=== PATIENT | female | born 1985 | race Caucasian/White ===

== ENCOUNTER 2020-06-06 11:19 | Outpatient (REF) | payer OTHER, SELFPAY ==
[2020-06-06 14:51] LABS: Syphilis Screen Nonreactive (Nonreactive)
[2020-06-07 10:28] LABS: Herpes Simplex Type 1 IgG <0.90 index; Herpes Simplex Type 2 IgG 2.83 index
[2020-06-07 11:11] LABS: BV Int Neg Control Negative (Negative); BV Int Pos Control Positive (Positive)
[2020-06-08 08:48] LABS: HIV AB/AG Nonreactive (Nonreactive); HIV Num 1 0.16 S/CO (0.00-0.99); ~HepC Num1 0.24 S/CO (0.00-0.79); ~Hepatitis C Antibody Nonreactive (Nonreactive)
[2020-06-08 09:34] LABS: Hepatitis B Core Antibody Nonreactive (Nonreactive)
[2020-06-09 06:38] LABS: CT PCR NOT DETECTED (Not Detect.); NG PCR NOT DETECTED (Not Detect.)
== END 2020-06-06 11:20 | disposition home or self-care (01) ==
LOC: HO.LAB 11:19
PROVIDERS: PCP Internal Medicine; Visit Provider Advanced Practice Midwife
DX: Z20.2 Contact with and (suspected) exposure to infections with a predominantly sexual mode of transmission (principal)
CPT/HCPCS: 86695; 86696; 86704; 86780; 86803; 87389; 87480; 87491; 87510; 87591; 87660; 99212

== ENCOUNTER → 2020-06-18 13:38 | Outpatient (BNVA) | payer OTHER, SELFPAY | PROVIDERS: PCP Internal Medicine; Visit Provider Advanced Practice Midwife | DX: Z76.89 Persons encountering health services in other specified circumstances (principal) ==

== ENCOUNTER 2020-07-19 13:04 | Outpatient (REF) | payer OTHER, SELFPAY ==
[2020-07-20 08:12] LABS: HBc Num1 0.08 S/CO (0.00-0.79); HIV AB/AG Nonreactive (Nonreactive); HIV Num 1 0.13 S/CO (0.00-0.99); Hepatitis B Core Antibody Nonreactive (Nonreactive); ~HepC Num1 0.21 S/CO (0.00-0.79); ~Hepatitis C Antibody Nonreactive (Nonreactive)
[2020-07-20 08:35] LABS: Syphilis Screen Nonreactive (Nonreactive)
== END 2020-07-19 13:05 | disposition home or self-care (01) ==
LOC: HO.LAB 13:04
PROVIDERS: PCP Internal Medicine; Visit Provider Advanced Practice Midwife
DX: Z01.419 Encounter for gynecological examination (general) (routine) without abnormal findings (principal); Z20.2 Contact with and (suspected) exposure to infections with a predominantly sexual mode of transmission
CPT/HCPCS: 36415; 86704; 86780; 86803; 87389

== ENCOUNTER 2020-07-19 13:59 | Outpatient (REF) | payer OTHER, SELFPAY ==
[2020-07-20 18:32] LABS: C. trachomatis RNA TMA NOT DETECTED (NOT DETECTED); N. gonorrhoeae RNA TMA NOT DETECTED (NOT DETECTED)
== END 2020-07-19 14:00 | disposition home or self-care (01) ==
LOC: HO.LAB 13:59
PROVIDERS: Visit Provider Advanced Practice Midwife
DX: Z20.2 Contact with and (suspected) exposure to infections with a predominantly sexual mode of transmission (principal)
CPT/HCPCS: 36415; 87491; 87591

== ENCOUNTER 2020-12-19 14:49 | Outpatient (REF) | payer OTHER, SELFPAY ==
[2020-12-21 08:08] LABS: HIV AB/AG Nonreactive (Nonreactive); HIV Num 1 0.12 S/CO (0.00-0.99)
== END 2020-12-19 14:50 | disposition home or self-care (01) ==
LOC: HO.LAB 14:49
PROVIDERS: PCP Internal Medicine; Visit Provider Internal Medicine
DX: Z11.4 Encounter for screening for human immunodeficiency virus [HIV] (principal); Z20.2 Contact with and (suspected) exposure to infections with a predominantly sexual mode of transmission
CPT/HCPCS: 36415; 87389

== ENCOUNTER 2021-02-08 14:00 | Outpatient (RCR) | payer OTHER, SELFPAY ==
--- NOTE | 2020-12-28 17:03 | MHC.PT.EP ---
[facility] [place] Office [place] Office [place] Office [address] Xiang Chaparro [address] [phone] F: [phone] F: [phone] F: [phone] F: [phone] Physical Therapy Plan of Care Date of Evaluation: Date of Surgery: N/A Diagnosis: Unspecified dorsalgia Assessment: Pt is a 35yo F who presents to PT with thoracic back pain. She presents with current impairments in pain, strength, ROM, impaired posture, endurance, balance, hypermobility, and instability. She is able to tolerate sitting or standing upright < 30 sec. She is limited functionally by prolonged sitting, prolonged standing, ambulation, and sleeping. She is a good candidate for skilled PT services to address current impairments, initiate general strengthening, and to improve stability in order to facilitate return to previous activity level. Frequency and Duration: The patient will be seen 2x/week, 4 weeks Short Term Goals: Pt will be I with HEP to promote self management of symptoms Pt will tolerate sitting upright for 2 min Residential Goals: Pt will demonstrate full, pain-free thoracic mobility. Pt will tolerate sitting upright for at least 20 min Pt ambulate at least 20 min with improved stability and gait mechanics Treatment Plan: Modalities to reduce pain, spasms and effusion. Manual therapy to restore motion and function. Therapeutic exercise to improve strength and flexibility. Neuromuscular re-education for posture and balance. Therapeutic activities to return to functional activities of daily living. Electronically signed by: Kaila Mascorro, PT, DPT Please sign and return to therapist. Thank you for your referral.
--- NOTE | 2021-02-11 11:31 | MHC.PT.DC ---
[facility] [place] Office [place] Office [place] Office [address] Xiang Chaparro [address] [phone] F: [phone] F: [phone] F: [phone] F: [phone] Physical Therapy Discharge Report Diagnosis: Unspecified dorsalgia Date of Surgery: N/A Date of Evaluation: 12/28/20 Date of Discharge: 02/11/21 Treatments to Date: 6 Cancellations to Date: 1 No Shows to Date: 1 Discharge Status: Achieved Goals Improved Function Independent with HEP Discharge Summary: Pt has made good progress toward her goals and has improved her function. She is currently independent with her HEP and feels she is at her baseline. She is being D/C from skilled PT services. She has been issued a HEP and given theraband. Electronically signed by: Kaila Mascorro, PT, DPT Please sign and return to therapist. Thank you for your referral.
== END 2021-02-11 11:30 | disposition home or self-care (01) ==
LOC: HO.PT 14:00
PROVIDERS: PCP Internal Medicine; Visit Provider Internal Medicine
DX: M54.9 Dorsalgia, unspecified (principal)
CPT/HCPCS: 97110; 97162; 97530

== ENCOUNTER 2021-03-11 08:58 | Outpatient (REF) | payer OTHER, SELFPAY ==
[2021-03-11 11:02] LABS: Hematocrit 40.7 % (37-47); Hemoglobin 13.5 g/dl (12.0-16.0); Mean Corpuscular HGB Conc 33.2 g/dl (31.0-35.0); Mean Corpuscular Hemoglobin 31.5 pg (27.0-33.0); Mean Corpuscular Volume 94.9 fL (80-98); Mean Platelet Volume 12.4 fL (9.4-12.3); Platelet Count 243 X10*3/uL (160-400); Red Blood Count 4.29 X10*6/uL (4.20-5.50); White Blood Count 6.6 X10*3/uL (4.8-10.8)
[2021-03-11 11:34] LABS: Alanine Aminotransferase 13 U/L (0-31); Albumin Level 4.3 g/dL (3.5-5.0); Alkaline Phosphatase 45 U/L (39-117); Anion Gap 12 (12-20); Aspartate Amino Transferase 16 U/L (5-31); Blood Urea Nitrogen 16 mg/dL (9-16); C Reactive Protein 0.06 mg/dL (< or = 0.50); Calcium 10.3 mg/dL (8.4-10.2); Carbon Dioxide 25 mmol/L (22-29); Chloride 107 mmol/L (96-108); Estimated Glomerular Filt Rate > 60; Glucose Random 79 mg/dL (60-115); Sodium 139 mmol/L (135-145); Total Protein 6.3 g/dL (6.5-8.0)
[2021-03-11 11:41] LABS: Bilirubin Total 0.3 mg/dL (0.0-1.0)
[2021-03-12 21:26] LABS: Transglutaminase Ab IgG 4 U/mL; Transglutaminase IgA 1 U/mL
== END 2021-03-11 08:59 | disposition home or self-care (01) ==
LOC: HO.LAB 08:58
PROVIDERS: PCP Internal Medicine; Referring Provider Internal Medicine; Visit Provider Nurse Practitioner Family
DX: Z12.11 Encounter for screening for malignant neoplasm of colon (principal); R10.11 Right upper quadrant pain; R14.0 Abdominal distension (gaseous); K52.9 Noninfective gastroenteritis and colitis, unspecified; K21.9 Gastro-esophageal reflux disease without esophagitis
CPT/HCPCS: 36415; 80053; 83516; 85027; 86140; 99212

== ENCOUNTER → 2021-04-15 13:33 | Outpatient (BNVA) | payer OTHER, SELFPAY | PROVIDERS: PCP Internal Medicine; Visit Provider Nurse Practitioner Family | DX: K21.9 Gastro-esophageal reflux disease without esophagitis (principal); K52.9 Noninfective gastroenteritis and colitis, unspecified; K58.0 Irritable bowel syndrome with diarrhea | CPT/HCPCS: 99212 ==

== ENCOUNTER 2021-04-17 14:44 | Outpatient (REF) | payer OTHER, SELFPAY ==
[2021-04-18 13:03] LABS: H Pylori Breath Test Negative (Negative)
== END 2021-04-17 14:45 | disposition home or self-care (01) ==
LOC: HO.LNP 14:44
PROVIDERS: Visit Provider Nurse Practitioner Family
DX: K21.9 Gastro-esophageal reflux disease without esophagitis (principal); Z11.3 Encounter for screening for infections with a predominantly sexual mode of transmission
CPT/HCPCS: 83013

== ENCOUNTER 2021-05-13 12:58 | Outpatient (REF) | payer OTHER, SELFPAY ==
--- NOTE | ~2021-05-13 | CT_ITS ---
EXAMINATION: CT ABDOMEN AND PELVIS WITH CONTRAST CLINICAL INFORMATION: Abdominal pain COMPARISON: Previous abdominal ultrasound June 2017 TECHNIQUE: Multidetector volumetric images were obtained from the superior aspect of the liver through the pubic symphysis following administration 85 mL of Omnipaque 350 intravenous contrast. Sagittal and coronal reformatted images were obtained on the technologist's workstation. Oral contrast: Yes This CT examination was performed using dose optimization techniques as appropriate, variously including the following: *Automated exposure control *Adjustment of mA and/or kV according to patient size (this includes techniques or standardized protocols for targeted exams where dose is matched to indication/reason for exam; i.e. extremities or head) *Use of iterative reconstruction technique DLP: 202 mGy-cm FINDINGS: LUNG BASES: The visualized lung bases are unremarkable. LIVER, GALLBLADDER, AND BILIARY TREE: The liver is normal in size, shape, and attenuation. There is a 5 mm low-attenuation lesion in the right lobe of the liver axial image 32 series 3. This is difficult to characterize due to small size but probably represents a. No biliary ductal dilatation is present. The gallbladder is unremarkable with no evidence of radiopaque gallstones, gallbladder wall thickening, or obvious pericholecystic inflammatory changes. PANCREAS: Unremarkable. SPLEEN: There is a small 8 mm low-attenuation lesion in the probably representing a cyst or hemangioma. ADRENAL GLANDS: Unremarkable. KIDNEYS AND URETERS: The kidneys are normal in size, shape, and attenuation. No hydronephrosis, hydroureter, or calculi seen. No perinephric stranding. BLADDER: Unremarkable. GASTROINTESTINAL TRACT: There is wall thickening and edema of the distal colon and rectum there is prominent adjacent vascularity. Findings are suggestive of proctocolitis. No evidence of obstruction, perforation or abscess is seen. The appendix is unremarkable. ABDOMINAL WALL: No significant hernia is appreciated. LYMPH NODES: Normal. VASCULAR: Unremarkable. PELVIC VISCERA: Unremarkable. OSSEOUS STRUCTURES: Unremarkable. CT/CT abdomen pelvis w con IMPRESSION: Wall thickening and edema of the distal colon and rectum suggestive of proctocolitis.
[2021-05-13] MEDS: iohexoL 350 MG/ML 100 ML INFUS..BTL IV (15:32)
== END 2021-05-13 12:59 | disposition home or self-care (01) ==
LOC: HO.CT 12:58
PROVIDERS: Visit Provider Nurse Practitioner Family
DX: R10.9 Unspecified abdominal pain (principal)
CPT/HCPCS: 74177; Q9967

== ENCOUNTER 2021-05-17 11:43 | Day surgery (SDC) | payer OTHER, SELFPAY ==
[2021-05-10 15:28] VITALS: BMI 16.7
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
[2021-05-17 12:57] VITALS: BP 106/69; PULSE 94; RESP 16; TEMP 37.3; O2SAT 95
[2021-05-17 12:59] LABS: UPreg QC Valid YES; Urine Pregnancy NEGATIVE (NEGATIVE)
[2021-05-17] MEDS: Lactated Ringers 1,000 ML 100 ML IVCONT (13:12)
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
--- NOTE | 2021-05-17 13:57 | P.OP_ITS ---
Operative Note Operative Note Date of Service: 05/17/21 Narrative: Pre-op diagnosis: GERD, nausea, vomiting and diarrhea Post-op diagnosis: other (GERD, gastritis) Procedure:? FLEXIBLE TRANSORAL UPPER GASTROINTESTINAL ENDOSCOPY WITH BIOPSIES Consent:?Indications for the procedure and potential complications of bleeding, perforation, reaction to medications and missed diagnosis were discussed with the patient and informed consent was obtained. Instrument:?Olympus GIF H 190 mid size upper endoscope Monitoring: Vital signs and clinical assessment, continuous EKG monitoring, Pulse oximetry, Carbon Dioxide monitoring and blood pressure monitoring were done throughout the procedure. Procedure:?The patient was placed in the left lateral decubitis position and pre-procedure medications were administered and a bite block was placed. The endoscope was inserted into the mouth and advanced under direct vision to the third part of duodenum. A careful inspection was made as the upper endoscope was withdrawn including a retroflexed examination of the proximal stomach; Findings and interventions are described below. Findings: Larynx:? Normal Esophagus: No stricture or ring noted in the esophagus - biopsies were obtained from proximal esophagus to check for EOE. GE junction at 40 cms. No esophagitis or Tapia's. Stomach: Minimal erythema in the antrum. Biopsies were obtained. Grade 2 flap valve on retroflexed examination of the cardia. Duodenum: Normal bulb and descending duodenum.? Biopsies were obtained from 3rd part of the duodenum to check for celiac sprue Intervention: Biopsies as noted above Impression and Post Procedure Diagnosis: Endoscopy Findings: ESOPHAGUS:? No stricture or ring noted in the esophagus - biopsies were obtained from proximal esophagus to check for EOE. STOMACH: Minimal gastritis DUODENUM: Normal - bxed to check for celiac sprue Plan: Await pathology results Patient to schedule a FU appointment in the GI Clinic with ? Rashmi Llanes, MERCHANDISER-. Advise further evaluation with a colonoscopy since Abd CT scan showed?Wall thickening and edema of the distal colon and rectum suggestive of proctocolitis. Above findings were reviewed with the patient and GERD and Gastritis handouts were given in the discharge area Surgeon: Mervin Marx MD Anesthesia: MAC (Dr Reno) Was an Web Content & Social Media Manager used for this Procedure?: Yes Web Content & Social Media Manager: Lisa Little Estimated blood loss (mL): 0 Pathology: other (A. small bowel biopsies, R/O celiac? B. gastric antrum, R/O H. pylori? C. proximal esophagus, R/O EOE) Condition: stable Disposition: PACU
[2021-05-17 15:01] VITALS: BP 108/53; PULSE 113; RESP 15; TEMP 36.9; O2SAT 98
[2021-05-17 15:24] VITALS: BP 100/49; PULSE 77; RESP 16; TEMP 36.8; O2SAT 97
== END 2021-05-17 15:56 | disposition home or self-care (01) ==
PROVIDERS: Nurse Practitioner; PCP Internal Medicine; Visit Provider Internal Medicine Gastroenterology
PROC: 0DJ08ZZ Inspection of Upper Intestinal Tract, Via Natural or Artificial Opening Endoscopic (ICD-10-PCS; CPT 43235; principal; 2021-05-17 12:50)
DX: K21.9 Gastro-esophageal reflux disease without esophagitis (principal); K29.50 Unspecified chronic gastritis without bleeding; K58.0 Irritable bowel syndrome with diarrhea; Q85.1 Tuberous sclerosis; Z88.0 Allergy status to penicillin; Z88.8 Allergy status to other drugs, medicaments and biological substances; Z87.891 Personal history of nicotine dependence
CPT/HCPCS: 43239; 81025; 88305; 88342; J2370

== ENCOUNTER 2021-05-31 15:15 | Outpatient (REF) | payer OTHER, SELFPAY ==
[2021-05-31 15:58] LABS: Leukocytes Stool Qualitative NEGATIVE (NEGATIVE)
[2021-06-05 21:03] LABS: Calprotectin, Fecal 20 mcg/g
== END 2021-05-31 15:16 | disposition home or self-care (01) ==
LOC: HO.LNP 15:15
PROVIDERS: Visit Provider Nurse Practitioner Family
DX: K52.9 Noninfective gastroenteritis and colitis, unspecified (principal)
CPT/HCPCS: 83993; 87045; 87046; 87077; 87177; 87209; 89055

== ENCOUNTER 2021-06-11 15:07 | Emergency (ER) | payer OTHER, SELFPAY ==
--- NOTE | ~2021-06-11 | XR_ITS ---
EXAMINATION: XR WRIST, RIGHT CLINICAL INFORMATION: Trauma, pain COMPARISON: None TECHNIQUE: Right wrist is imaged in 4 views. FINDINGS: There is no fracture or dislocation or destructive process. The ulnar variance is neutral. No joint narrowing or erosive change or chondrocalcinosis. XR/XR wrist RT 2V IMPRESSION: Normal right wrist.
[2021-06-11 15:31] VITALS: BP 122/71; PULSE 86; RESP 18; TEMP 36.6; O2SAT 98; BMI 17.2
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
== END 2021-06-11 19:36 | disposition home or self-care (01) ==
PROVIDERS: Emergency Provider Emergency Medicine; PCP Internal Medicine
DX: S66.911A Strain of unspecified muscle, fascia and tendon at wrist and hand level, right hand, initial encounter (principal); X50.1XXA Overexertion from prolonged static or awkward postures, initial encounter; Y93.84 Activity, sleeping; Y92.032 Bedroom in apartment as the place of occurrence of the external cause; Y99.9 Unspecified external cause status
CPT/HCPCS: 73100; 99283

== ENCOUNTER 2021-11-20 11:52 | Outpatient (REF) | payer OTHER, SELFPAY ==
[2021-11-20 12:58] LABS: Influenza A PCR POSITIVE (Negative); Influenza B PCR NEGATIVE (Negative); Resp Syncy Virus RNA Qual PCR NEGATIVE (Negative); SARS COV2 PCR INHOUSE NEGATIVE (Negative)
== END 2021-11-20 11:53 | disposition home or self-care (01) ==
LOC: HO.LNP 11:52
PROVIDERS: Visit Provider Physician Assistant
DX: Z20.822 Contact with and (suspected) exposure to COVID-19 (principal); B34.9 Viral infection, unspecified
CPT/HCPCS: 0241U; 87071

== ENCOUNTER 2022-01-01 11:33 | Outpatient (REF) | payer OTHER, SELFPAY ==
[2022-01-01 13:18] LABS: Alanine Aminotransferase 28 U/L (0-31); Albumin Level 4.2 g/dL (3.5-5.0); Alkaline Phosphatase 57 U/L (39-117); Amylase 81 U/L (28-100); Aspartate Amino Transferase 24 U/L (5-31); Bilirubin Direct 0.2 mg/dL (0.0-0.5); Bilirubin Total 0.4 mg/dL (0.0-1.0); Lipase 27 U/L (8-78); Total Protein 6.8 g/dL (6.5-8.0)
[2022-01-01 13:38] LABS: TSH reflex Free T4 1.33 uIU/mL (0.32-4.0)
[2022-01-01 15:15] LABS: Folate > 20.0 ng/mL (> or = 4.0); Vitamin B12 587 pg/mL (200-900)
[2022-01-07 12:57] LABS: Vitamin D 25-OH, D2 <4 ng/mL; Vitamin D 25-OH, D3 42 ng/mL; Vitamin D 25-OH, Total 42 ng/mL (30-100)
== END 2022-01-01 11:34 | disposition home or self-care (01) ==
LOC: HO.LAB 11:33
PROVIDERS: PCP Internal Medicine; Visit Provider Nurse Practitioner Family
DX: R10.9 Unspecified abdominal pain (principal); R19.7 Diarrhea, unspecified; R11.0 Nausea; K21.9 Gastro-esophageal reflux disease without esophagitis; K58.9 Irritable bowel syndrome, unspecified; E55.9 Vitamin D deficiency, unspecified
CPT/HCPCS: 36415; 80076; 82150; 82306; 82607; 82746; 83690; 84443; 84702; 86003; 99212

== ENCOUNTER → 2022-01-09 12:52 | Outpatient (BNVA) | payer OTHER, SELFPAY | PROVIDERS: PCP Internal Medicine; Visit Provider Advanced Practice Midwife | DX: Z32.01 Encounter for pregnancy test, result positive (principal); N92.6 Irregular menstruation, unspecified | CPT/HCPCS: 81025; 99202 ==

== ENCOUNTER 2022-01-10 17:45 | Emergency (ER) | payer OTHER, SELFPAY ==
--- NOTE | ~2022-01-10 | US_ITS ---
EXAMINATION: US ABDOMEN LIMITED CLINICAL INFORMATION: Abdominal pain. COMPARISON: Previous CT of the abdomen and pelvis April 2021 and abdominal ultrasound from 2018 TECHNIQUE: Real-time imaging of the right upper quadrant abdominal viscera. FINDINGS: PANCREAS: Normal. LIVER: Normal. The liver is normal in size. The liver contour is normal. Parenchymal echogenicity is normal. No focal hepatic lesion. There is no intrahepatic biliary duct dilatation seen. GALLBLADDER: Normal. The gallbladder is physiologically distended without evidence of stones, sludge, polyps, wall thickening or pericholecystic fluid. COMMON BILE DUCT: Normal in caliber measuring 0.2 cm in diameter. RIGHT KIDNEY: Normal. No hydronephrosis. No renal calculi or focal parenchymal lesions. The kidney measures 12 cm in maximum dimension. FREE FLUID: None. US/US abdomen limited IMPRESSION: Unremarkable exam.
--- NOTE | ~2022-01-10 | XR_ITS ---
EXAMINATION: XR SHOULDER, RIGHT CLINICAL INFORMATION: Right shoulder pain COMPARISON: None TECHNIQUE: Three views of the right shoulder. FINDINGS: No acute fracture or dislocation. Small soft tissue calcification adjacent to the greater tuberosity compatible with calcific tendinopathy of the rotator cuff. Glenohumeral joint space is maintained. AC joint is congruent and intact. No osteophytes are seen. Visualized right lung is grossly clear. Cerclage wires and surgical clips project over the mid thorax. XR/XR shoulder RT min 2V IMPRESSION: 1. No acute fracture or dislocation. 2. Findings compatible with calcific tendinopathy of the rotator cuff.
--- NOTE | ~2022-01-10 | XR_ITS ---
EXAMINATION: XR CHEST CLINICAL INFORMATION: Right-sided pain COMPARISON: Prior chest radiographs, most recently 11/06/2016 TECHNIQUE: 2 views of the chest were obtained. FINDINGS: There are intact sternal wires and note is again made of a pectus excavatum. The cardiomediastinal contours are unchanged. The lungs are well expanded and there are no focal opacities. No pleural effusion or pneumothorax. Structures of the chest wall are stable. XR/XR chest 2V IMPRESSION: No acute abnormality.
[2022-01-10 17:51] VITALS: BP 140/70; PULSE 96; O2SAT 99
--- NOTE | 2022-01-10 17:53 | PC.NURSE ---
EMS report: Pt has 11 out of 10 sciatic nerve pain from their neck down to their feet . Pt is 9 weeks and reports that she will be getting an on Thursday due to the pain, 'because the baby is pushing on my sciatic nerve'. Seen at urgent care on Thursday, given lidocaine patches and muscle relaxers with no relief.
[2022-01-10 18:26] VITALS: BP 120/68; PULSE 93; RESP 20; TEMP 36.7; O2SAT 97; BMI 16.9
--- NOTE | 2022-01-10 18:30 | PC.NURSE ---
Planned at [facility] on Thursday.
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
[2022-01-10] MEDS: oxyCODONE HCl Immed Release 5 MG TABLET PO ×2 (21:41→23:36)
[2022-01-10 22:58] LABS: Basophils Percent Auto 0.5 % (0-2); Eosinophils Absolute Auto 0.1 X10*3/uL (0.0-0.4); Eosinophils Percent Auto 0.7 % (0-4); Hematocrit 38.5 % (37.0-47.0); Hemoglobin 13.1 g/dl (12.0-16.0); Imm Gran Abs Auto 0.02 X10*3/uL (0.00-0.03); Imm Gran Pct Auto 0.2 % (0.0-0.4); Lymphocytes Absolute Auto 4.5 X10*3/uL (1.2-4.9); Lymphocytes Percent Auto 54.9 % (20-40); MANUAL DIFF FLAG SCAN; Mean Corpuscular Hemoglobin 30.8 pg (27.0-33.0); Mean Corpuscular Volume 90.4 fL (80.0-98.0); Mean Platelet Volume 10.2 fL (9.4-12.3); Monocytes Absolute Auto 0.6 X10*3/uL (0.1-1.2); Monocytes Percent Auto 7.1 % (2-11); Neutrophils Percent Auto 36.6 % (45-73); Platelet Count 260 X10*3/uL (160-400); Red Blood Count 4.26 X10*6/uL (4.20-5.50); Red Cell Distribution Width 14.3 % (11.0-16.0); SCAN SMEAR FLAG 1; White Blood Count 8.2 X10*3/uL (4.8-10.8)
[2022-01-10 23:18] LABS: SLIDE REVIEW VERIFIED
[2022-01-10 23:24] LABS: Alanine Aminotransferase 30 U/L (0-31); Albumin Level 3.7 g/dL (3.5-5.0); Alkaline Phosphatase 52 U/L (39-117); Anion Gap 13 (12-20); Aspartate Amino Transferase 29 U/L (5-31); Bilirubin Total 0.5 mg/dL (0.0-1.0); Blood Urea Nitrogen 11 mg/dL (9-16); Calcium 8.4 mg/dL (8.4-10.2); Carbon Dioxide 21 mmol/L (22-29); Chloride 106 mmol/L (96-108); Creatinine Clr Calc Pharmacy 98.6; Estimated Glomerular Filt Rate > 60; Glucose Random 99 mg/dL (60-115); Potassium 3.9 mmol/L (3.3-5.1); Sodium 136 mmol/L (135-145); Total Protein 6.2 g/dL (6.5-8.0)
[2022-01-10] MEDS: Ondansetron ODT 4 MG TAB.RAPDIS TRANSLINGU (23:36)
== END 2022-01-10 23:46 | disposition home or self-care (01) ==
PROVIDERS: Emergency Provider Emergency Medicine; PCP Internal Medicine
DX: O26.891 Other specified pregnancy related conditions, first trimester (principal); M75.41 Impingement syndrome of right shoulder; O09.521 Supervision of elderly multigravida, first trimester; O99.321 Drug use complicating pregnancy, first trimester; F12.90 Cannabis use, unspecified, uncomplicated; Z3A.09 9 weeks gestation of pregnancy; Z87.891 Personal history of nicotine dependence
CPT/HCPCS: 36415; 71046; 73030; 76705; 80053; 85025; 99283; 99284

== ENCOUNTER → 2022-02-03 14:21 | Outpatient (BNVA) | payer OTHER, SELFPAY | PROVIDERS: PCP Internal Medicine; Visit Provider Physician Assistant | DX: M77.8 Other enthesopathies, not elsewhere classified (principal); M24.2 Disorder of ligament | CPT/HCPCS: 99202 ==

== ENCOUNTER 2022-02-27 14:00 | Outpatient (RCR) | payer OTHER, SELFPAY ==
--- NOTE | 2022-02-03 12:29 | MHC.PT.EP ---
[facility] [place] Office [place] Office [place] Office [address] Xiang Chaparro [address] [phone] F: [phone] F: [phone] F: [phone] F: [phone] Physical Therapy Plan of Care Date of Evaluation: Date of Surgery: NA Diagnosis: PAIN IN RIGHT SHOULDER Assessment: Pt IS 36 YO F REFERRED TO PT FROM DR ALFORD WITH R SHLDER PAIN. Pt REPORTS ABOUT 1 MONTH OF R SHLDER PAIN WHICH STARTED AFTER SHE SLEPT FUNNY ON IT . HAD XRAY WHICH WAS + FOR CALCIFIC TENDONITS. PRESENTS WITH POOR POSTURE, DECREASED END RANGE R SHLDER ROM, DECREASED R SHLDER STRENGTH +MODIFIED IMPINGEMENT SIGN. IS SEEING ORTHO THIS AFTERNOON. SHOULD BENEFIT FROM PT TO ADDRESS THESE ISSUES Frequency and Duration: The patient will be seen 2X/WK X 6 WKS Short Term Goals: 1. INCREASED POSTURE AWARENESS AND AWARENESS SHLDER CARE 2. I HEP WITH DC EX PLAN Patient Portal Representative Goals: 1. DECREASED R SHOULDER PAIN AT LEAST 50% WITH ADLS 2. INCREASED R SHLDER ROM 10-20 DEGREES T/O 3. IMPROVED SPADI Treatment Plan: Modalities to reduce pain, spasms and effusion. Manual therapy to restore motion and function. Therapeutic exercise to improve strength and flexibility. Neuromuscular re-education for posture and balance. Therapeutic activities to return to functional activities of daily living. Electronically signed by: SUSAN JIMENEZ PT Please sign and return to therapist. Thank you for your referral.
--- NOTE | 2022-03-26 13:43 | MHC.PT.DC ---
[facility] [place] Office [place] Office [place] Office [address] Xiang Chaparro [address] [phone] F: [phone] F: [phone] F: [phone] F: [phone] Physical Therapy Discharge Report Diagnosis: PAIN IN RIGHT SHOULDER Date of Surgery: NA Date of Evaluation: 02/03/22 Date of Discharge: 03/26/22 Treatments to Date: 6 Cancellations to Date: 2 No Shows to Date: Discharge Status: Independent with HEP Patient Elected to Stop Visit Non-compliance Discharge Summary: Pt WAS SEEN FOR INIT EVAL AND 5 VISITS. PER ASSESSMENT AT LAST VISIT ON 02/27/22 BY LOC JENSEN BET TAKER: 'Pt able to berenice all exercises, req frequent cuing to stay on task throughout. Pt benefitting from increasing strengthening exercises.' Pt THEN CANCELLED NEXT 2 VISITS WITHOUT RESCHEDULE. THIS PT CALLED CELL PHONE # WITH NO ANSWER. WILL DC AT THIS TIME PER ATTENDANCE POLICY Electronically signed by: SUSAN JIMENEZ PT Please sign and return to therapist. Thank you for your referral.
== END 2022-03-26 13:44 | disposition home or self-care (01) ==
LOC: HO.PT 14:00
PROVIDERS: Absent Provider Physician Assistant; PCP Internal Medicine; Visit Provider Internal Medicine
DX: M77.8 Other enthesopathies, not elsewhere classified (principal); M24.2 Disorder of ligament
CPT/HCPCS: 97110; 97162; 97535

== ENCOUNTER 2022-02-27 15:00 | Outpatient (REF) | payer OTHER, SELFPAY ==
[2022-02-27 15:27] LABS: MANUAL DIFF FLAG NO
[2022-02-27 16:13] LABS: Basophils Percent Auto 0.7 % (0-2); Eosinophils Absolute Auto 0.1 X10*3/uL (0.0-0.4); Eosinophils Percent Auto 1.7 % (0-4); Hematocrit 40.9 % (37.0-47.0); Hemoglobin 13.6 g/dl (12.0-16.0); Imm Gran Abs Auto 0.02 X10*3/uL (0.00-0.03); Imm Gran Pct Auto 0.3 % (0.0-0.4); Lymphocytes Absolute Auto 2.6 X10*3/uL (1.2-4.9); Lymphocytes Percent Auto 44.1 % (20-40); Mean Corpuscular HGB Conc 33.3 g/dl (31.0-35.0); Mean Corpuscular Hemoglobin 31.1 pg (27.0-33.0); Mean Corpuscular Volume 93.4 fL (80.0-98.0); Mean Platelet Volume 11.1 fL (9.4-12.3); Monocytes Absolute Auto 0.4 X10*3/uL (0.1-1.2); Monocytes Percent Auto 6.7 % (2-11); Neutrophils Absolute Auto 2.8 x10*3/uL (2.0-8.3); Neutrophils Percent Auto 46.5 % (45-73); Platelet Count 346 X10*3/uL (160-400); Red Blood Count 4.38 X10*6/uL (4.20-5.50)
== END 2022-02-27 15:01 | disposition home or self-care (01) ==
LOC: HO.LAB 15:00
PROVIDERS: PCP Internal Medicine; Visit Provider Internal Medicine
DX: R53.83 Other fatigue (principal)
CPT/HCPCS: 36415; 84443; 85025

== ENCOUNTER 2022-05-28 15:46 | Outpatient (REF) | payer OTHER, SELFPAY ==
--- NOTE | ~2022-05-28 | XR_ITS ---
EXAMINATION: XR CHEST CLINICAL INFORMATION: Shortness of breath COMPARISON: Chest x-ray 01/10/2022 TECHNIQUE: 2 views of the chest were obtained. FINDINGS: No airspace consolidation. No pleural effusion or pneumothorax. Normal cardiomediastinal silhouette and pulmonary vascularity. Couple upper sternal wires are noted. No acute osseous injury. XR/XR chest 2V IMPRESSION: No acute pulmonary process.
== END 2022-05-28 15:47 | disposition home or self-care (01) ==
LOC: HO.HMGCX 15:46
PROVIDERS: PCP Internal Medicine; Visit Provider Internal Medicine
DX: R06.02 Shortness of breath (principal)
CPT/HCPCS: 0241U; 71046

== ENCOUNTER 2022-05-28 16:11 | Outpatient (REF) | payer OTHER, SELFPAY ==
[2022-05-28 18:33] LABS: Influenza A PCR NEGATIVE (Negative); Influenza B PCR NEGATIVE (Negative); Resp Syncy Virus RNA Qual PCR NEGATIVE (Negative); SARS COV2 PCR INHOUSE NEGATIVE (Negative)
== END 2022-05-28 16:12 | disposition home or self-care (01) ==
LOC: HO.LNP 16:11
PROVIDERS: Visit Provider Nurse Practitioner Family
DX: Z13.89 Encounter for screening for other disorder (principal)
CPT/HCPCS: 0241U

== ENCOUNTER → 2022-07-09 10:30 | Outpatient (BNVA) | payer OTHER, SELFPAY | PROVIDERS: PCP Internal Medicine; Visit Provider Advanced Practice Midwife | DX: Z30.41 Encounter for surveillance of contraceptive pills (principal) | CPT/HCPCS: 99212 ==

== ENCOUNTER 2022-08-15 00:50 | Emergency (ER) | payer OTHER, SELFPAY ==
--- NOTE | ~2022-08-15 | XR_ITS ---
EXAMINATION: XR CHEST CLINICAL INFORMATION: Dyspnea. URI. COMPARISON: 05/28/2022 TECHNIQUE: 2 views of the chest were obtained. FINDINGS: Cerclage wires overlie the central thorax. Hyperexpanded lungs. No consolidation, edema, or effusion. No pneumothorax. The cardiomediastinal silhouette is within normal limits. No acute osseous abnormality. XR/XR chest 2V IMPRESSION: Hyperexpanded lungs with no acute pulmonary finding.
[2022-08-15 01:04] VITALS: BP 134/82; PULSE 98; RESP 18; TEMP 37.3; O2SAT 95; BMI 16.4
[2022-08-15 01:24] VITALS: BP 133/91; PULSE 87; RESP 19; TEMP 37.1; O2SAT 97
[2022-08-15 01:29] VITALS: O2SAT 96
--- NOTE | 2022-08-15 01:34 | PC.NURSE ---
Pt's V/ S are stable, pt lungs sound throughout bilaterally clear. Pt is connected to the vice chair and it shows NSR. Pt o2 sat is normal.
[2022-08-15 01:56] LABS: Influenza A PCR NEGATIVE (Negative); Influenza B PCR NEGATIVE (Negative); Resp Syncy Virus RNA Qual PCR POSITIVE (Negative); SARS COV2 PCR INHOUSE NEGATIVE (Negative)
[2022-08-15 02:00] VITALS: BP 110/49; PULSE 95; RESP 23; TEMP 36.6; O2SAT 97
[2022-08-15] MEDS: guaiFEN/Codeine SF 200/20/10ML 10 ML LIQUID PO (02:13)
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
[2022-08-15 02:26] VITALS: PULSE 95; RESP 23; O2SAT 95
[2022-08-15] MEDS: dexAMETHasone 2 MG TABLET 10 MG PO (02:44)
--- NOTE | 2022-08-15 02:52 | PC.NURSE ---
Pt's V/ S are stable, pt hs hx of asthma. Lungs sound lower lobes with exp wheezes and yellow septum. Pt is connected to the cardiac surgeon and it shows NSR. Pt o2 sat is normal.
[2022-08-15 03:22] VITALS: BP 134/86; PULSE 91; RESP 19; TEMP 36.7; O2SAT 96
--- NOTE | 2022-08-15 03:23 | PC.NURSE ---
pt is having a dry cough, Medicated per Mar, no respiratory distress at this time, provider aware, Will continue to monitor.
== END 2022-08-15 04:38 | disposition home or self-care (01) ==
PROVIDERS: Emergency Provider Internal Medicine; PCP Internal Medicine
DX: J21.0 Acute bronchiolitis due to respiratory syncytial virus (principal); Z20.822 Contact with and (suspected) exposure to COVID-19; Z20.828 Contact with and (suspected) exposure to other viral communicable diseases; Z87.891 Personal history of nicotine dependence
CPT/HCPCS: 0241U; 71046; 94640; 99284; 99285; J8540

== ENCOUNTER 2022-09-03 14:48 | Outpatient (REF) | payer OTHER, SELFPAY ==
[2022-09-03 19:40] LABS: CT PCR NOT DETECTED (Not Detect.); NG PCR NOT DETECTED (Not Detect.)
== END 2022-09-03 14:49 | disposition home or self-care (01) ==
LOC: HO.LNP 14:48
PROVIDERS: PCP Internal Medicine; Visit Provider Advanced Practice Midwife
DX: Z20.2 Contact with and (suspected) exposure to infections with a predominantly sexual mode of transmission (principal)
CPT/HCPCS: 0353U

== ENCOUNTER 2022-09-15 14:28 | Outpatient (REF) | payer OTHER, SELFPAY ==
--- NOTE | ~2022-09-15 | MM_ITS ---
EXAMINATION: MM DIAGNOSTIC DIGITAL BREAST TOMOSYNTHESIS, BILATERAL US DIAGNOSTIC ULTRASOUND BREAST, RIGHT CLINICAL INFORMATION: 37-year-old with tender lump posterior upper outer right breast noted by patient. Unremarkable clinical exam. Family history breast cancer unknown. No prior breast imaging. COMPARISON: None (current study represents initial baseline exam). TECHNIQUE: Digital breast tomosynthesis is performed in both the craniocaudal and mediolateral oblique views along with computer-aided detection (CAD). Synthesized 2D images are generated from the tomosynthesis. Ultrasound right breast is targeted to the area of clinical concern. Patient is able to directly point to the area at time of imaging. Grayscale imaging and color Doppler are performed without and with harmonics. FINDINGS: The breasts are extremely dense, which lowers the sensitivity of mammography (ACR BI-RADS breast composition Category d). The symptom marker resides above the area of very dense breast tissue composition MLO view. There is no skin thickening or retraction or architectural abnormality. The axilla are unremarkable. The bilateral breasts show no mass or architectural abnormality. No abnormal calcifications. Ultrasound targeted to the area of clinical concern shows no cystic or solid mass or architectural abnormality. No focal duct ectasia. No skin thickening or edema tracking in soft tissue planes. Chest wall soft tissues are unremarkable. Results are discussed with the patient at time of visit. MM/MM tomosynthesis diagnostic BI IMPRESSION: -No mammographic evidence of malignancy or inflammatory changes. -Unremarkable targeted right breast ultrasound. ASSESSMENT: BI-RADS 1: Negative RECOMMENDATION: 1. Patient should be managed based on the clinical impression. If clinically indicated, further evaluation may be considered with surgical consult. Decision to proceed with biopsy should be based on clinical grounds and degree of clinical concern. 2. Otherwise, routine annual screening mammography, beginning age 40, or earlier as clinical risk factors warrant. This patient's information was entered into a reminder system with a target due date for their next mammogram.
== END 2022-09-15 14:29 | disposition home or self-care (01) ==
LOC: HO.MAMMO 14:28
PROVIDERS: PCP Internal Medicine; Visit Provider Advanced Practice Midwife
DX: N64.4 Mastodynia (principal)
CPT/HCPCS: 76642; 77062; 77066

== ENCOUNTER → 2022-09-23 13:24 | Outpatient (BNVA) | payer OTHER, SELFPAY | PROVIDERS: PCP Internal Medicine; Visit Provider Advanced Practice Midwife ==

== ENCOUNTER → 2022-10-21 14:01 | Outpatient (BNVA) | payer OTHER, SELFPAY | PROVIDERS: PCP Internal Medicine; Visit Provider Advanced Practice Midwife | DX: Z30.09 Encounter for other general counseling and advice on contraception (principal); Z32.02 Encounter for pregnancy test, result negative | CPT/HCPCS: 81025; 99212 ==

== ENCOUNTER → 2022-11-26 14:46 | Outpatient (BNVA) | payer OTHER, SELFPAY | PROVIDERS: PCP Internal Medicine; Visit Provider Nurse Practitioner Family | DX: J45.909 Unspecified asthma, uncomplicated (principal); Z91.09 Other allergy status, other than to drugs and biological substances | CPT/HCPCS: 99202 ==

== ENCOUNTER 2022-11-28 13:55 | Outpatient (REF) | payer OTHER, SELFPAY ==
[2022-11-28 14:10] LABS: MANUAL DIFF FLAG NO
[2022-11-28 14:25] LABS: Basophils Absolute Auto 0.1 X10*3/uL (0.0-0.2); Basophils Percent Auto 0.8 % (0-2); Eosinophils Absolute Auto 0.6 X10*3/uL (0.0-0.4); Eosinophils Percent Auto 10.3 % (0-4); Hematocrit 40.4 % (37.0-47.0); Hemoglobin 13.2 g/dl (12.0-16.0); Imm Gran Abs Auto 0.01 X10*3/uL (0.00-0.03); Imm Gran Pct Auto 0.2 % (0.0-0.4); Lymphocytes Absolute Auto 2.9 X10*3/uL (1.2-4.9); Lymphocytes Percent Auto 47.3 % (20-40); Mean Corpuscular HGB Conc 32.7 g/dl (31.0-35.0); Mean Corpuscular Hemoglobin 31.1 pg (27.0-33.0); Mean Corpuscular Volume 95.1 fL (80.0-98.0); Mean Platelet Volume 11.3 fL (9.4-12.3); Monocytes Absolute Auto 0.3 X10*3/uL (0.1-1.2); Monocytes Percent Auto 5.3 % (2-11); Neutrophils Absolute Auto 2.2 x10*3/uL (2.0-8.3); Neutrophils Percent Auto 36.1 % (45-73); Platelet Count 262 X10*3/uL (160-400); Red Blood Count 4.25 X10*6/uL (4.20-5.50); Red Cell Distribution Width 12.8 % (11.0-16.0); White Blood Count 6.1 X10*3/uL (4.8-10.8)
[2022-11-28 15:38] LABS: Alanine Aminotransferase 12 U/L (0-31); Alkaline Phosphatase 43 U/L (39-117); Anion Gap 10 (12-20); Aspartate Amino Transferase 14 U/L (5-31); Bilirubin Total 0.5 mg/dL (0.0-1.0); Blood Urea Nitrogen 10 mg/dL (9-16); Carbon Dioxide 25 mmol/L (22-29); Chloride 106 mmol/L (96-108); Cholesterol 156 mg/dL; Estimated Glomerular Filt Rate > 60; Glucose Fasting 87 mg/dL (60-99); HDL Cholesterol 53 mg/dL; Iron 42 mcg/dL (30-160); LDL Cholesterol Calculated 81 mg/dl; Percent Iron Saturation 12 % (15-50); Potassium 4.6 mmol/L (3.3-5.1); Sodium 136 mmol/L (135-145); Total Iron Binding Capacity 348 mcg/dL (228-428); Total Protein 6.4 g/dL (6.5-8.0); Triglycerides 111 mg/dL; Unsaturated Iron Binding 306 ug/dL
[2022-11-28 15:41] LABS: Vitamin D 25-OH Total 49.7 ng/mL (>30)
== END 2022-11-28 13:56 | disposition home or self-care (01) ==
LOC: HO.LAB 13:55
PROVIDERS: Nurse Practitioner Family; PCP Internal Medicine; Visit Provider Internal Medicine
DX: Z00.00 Encounter for general adult medical examination without abnormal findings (principal); E55.9 Vitamin D deficiency, unspecified; D64.9 Anemia, unspecified; Z91.09 Other allergy status, other than to drugs and biological substances
CPT/HCPCS: 36415; 80053; 80061; 82306; 82785; 83540; 85025; 86003

== ENCOUNTER 2022-12-03 13:59 | Outpatient (REF) | payer OTHER, SELFPAY ==
[2022-12-04 03:31] LABS: CT PCR NOT DETECTED (Not Detect.); NG PCR NOT DETECTED (Not Detect.)
== END 2022-12-03 14:00 | disposition home or self-care (01) ==
LOC: HO.LNP 13:59
PROVIDERS: PCP Internal Medicine; Visit Provider Obstetrics & Gynecology
DX: Z30.09 Encounter for other general counseling and advice on contraception (principal); N93.9 Abnormal uterine and vaginal bleeding, unspecified; Z20.2 Contact with and (suspected) exposure to infections with a predominantly sexual mode of transmission
CPT/HCPCS: 0353U; 81025; 99212

== ENCOUNTER 2022-12-10 16:06 | Outpatient (REF) | payer OTHER, SELFPAY ==
[2022-12-10 18:07] LABS: Hemoglobin 13.7 g/dl (12.0-16.0); Mean Corpuscular HGB Conc 32.6 g/dl (31.0-35.0); Mean Corpuscular Hemoglobin 30.8 pg (27.0-33.0); Mean Corpuscular Volume 94.4 fL (80.0-98.0); Mean Platelet Volume 11.8 fL (9.4-12.3); Platelet Count 309 X10*3/uL (160-400); Red Blood Count 4.45 X10*6/uL (4.20-5.50); Red Cell Distribution Width 12.9 % (11.0-16.0); White Blood Count 6.7 X10*3/uL (4.8-10.8)
[2022-12-10 18:16] LABS: HCG Quantitative < 2 mIU/mL
[2022-12-10 18:28] LABS: TSH reflex Free T4 0.98 uIU/mL (0.32-4.0)
[2022-12-13 09:09] LABS: Prolactin 6.8 ng/mL
== END 2022-12-10 16:07 | disposition home or self-care (01) ==
LOC: HO.LAB 16:06
PROVIDERS: PCP Internal Medicine; Visit Provider Obstetrics & Gynecology
DX: N93.9 Abnormal uterine and vaginal bleeding, unspecified (principal)
CPT/HCPCS: 36415; 84146; 84443; 84702; 85027

== ENCOUNTER 2022-12-11 16:33 | Outpatient (REF) | payer OTHER, SELFPAY ==
--- NOTE | ~2022-12-11 | US_ITS ---
EXAMINATION: US PELVIS COMPLETE CLINICAL INFORMATION: Abnormal uterine bleeding COMPARISON: CT abdomen pelvis 05/13/2021 TECHNIQUE: Transabdominal and transvaginal imaging was performed. FINDINGS: The uterus is of normal size and echogenicity measuring 8.3 x 3.2 x 4.8 cm. A regular homogeneous endometrium is identified measuring 0.9 cm. Trace fluid in the endocervical canal. section scar in the anterior lower uterine segment. Both ovaries are of normal echogenicity. The right measures 2.7 x 1.3 x 1.5 cm for a volume of 2.8 mL. The left measures 6.3 x 2.7 x 2.3 cm and appears mildly enlarged with a 2.8 cm dominant follicle, no follow-up imaging recommended. Vascular flow is present within the ovaries, without evidence of torsion. There is no pelvic free fluid. US/US pelvic and transvaginal IMPRESSION: Trace fluid in the endocervical canal. section scar in the anterior lower uterine segment. Physiologic findings in the ovaries as detailed above.
== END 2022-12-11 16:34 | disposition home or self-care (01) ==
LOC: HO.US 16:33
PROVIDERS: PCP Internal Medicine; Visit Provider Obstetrics & Gynecology
DX: N93.9 Abnormal uterine and vaginal bleeding, unspecified (principal)
CPT/HCPCS: 76830; 76856

== ENCOUNTER 2022-12-15 14:56 | Outpatient (REF) | payer OTHER, SELFPAY ==
--- NOTE | 2022-12-15 | PFT_ITS ---
INDICATION: Dyspnea. SPIROMETRY: The FEV1 to FVC of 67% with an FEV1 of 2.33 L, which is 69% predicted, FVC of 3.48 L, which is 84% predicted. Post bronchodilators, there was a significant improvement of the FEV1 by 20%. To note, the [id number] decreased down to 27% predicted pre bronchodilators. Maximum voluntary ventilation 60% predicted. LUNG VOLUMES: Total lung capacity 87% predicted. DIFFUSION CAPACITY: DLCO 64% predicted. COMPARISONS: None. INTERPRETATION: There is an obstructive ventilatory defect consistent with moderate COPD. There is a significant response to bronchodilators noted. There is also a moderate decrease in maximum voluntary ventilation secondary to likely deconditioning. Lung volumes are within normal limits, and the patient does have a mild diffusion impairment, likely secondary to emphysema and all the parenchymal condition should be considered. Should also correct for hemoglobin. Clinical correlation warranted. Tito Don MD MR/MODL / [id number]
== END 2022-12-15 14:57 | disposition home or self-care (01) ==
LOC: HO.RESP 14:56
PROVIDERS: PCP Internal Medicine; Visit Provider Nurse Practitioner Family
DX: J45.909 Unspecified asthma, uncomplicated (principal); R06.00 Dyspnea, unspecified
CPT/HCPCS: 94010; 94727; 94729

== ENCOUNTER → 2022-12-24 15:08 | Outpatient (BNVA) | payer OTHER, SELFPAY | PROVIDERS: PCP Internal Medicine; Visit Provider Nurse Practitioner Family | DX: J44.9 Chronic obstructive pulmonary disease, unspecified (principal); Z91.09 Other allergy status, other than to drugs and biological substances | CPT/HCPCS: 99212 ==

== ENCOUNTER 2023-01-12 14:05 | Outpatient (REF) | payer OTHER, SELFPAY ==
--- NOTE | ~2023-01-12 | CT_ITS ---
EXAMINATION: CT CHEST WITHOUT CONTRAST CLINICAL INFORMATION: COPD COMPARISON: None available. TECHNIQUE: Multidetector volumetric CT imaging of the chest was done. Axial MIP volume rendering provided. Sagittal and coronal reformatted images were obtained. This CT examination was performed using dose optimization techniques as appropriate, variously including the following: *Automated exposure control *Adjustment of mA and/or kV according to patient size (this includes techniques or standardized protocols for targeted exams where dose is matched to indication/reason for exam; i.e. extremities or head) *Use of iterative reconstruction technique DLP: 93 mGy-cm FINDINGS: LUNGS: The lungs are well-inflated. No evidence of emphysema interstitial lung disease or bronchiectasis. No endobronchial or endotracheal lesion. MEDIASTINUM: The visualized thyroid gland is normal. No enlarged hilar or mediastinal lymph nodes. Normal heart size. No pericardial effusion. Normal caliber thoracic aorta. CORONARY ARTERY CALCIFICATION: None visualized on this study. PLEURA: There is no pleural effusion. No pleural mass or thickening. AXILLA: No lymphadenopathy. UPPER ABDOMEN: Unremarkable. OSSEOUS STRUCTURES: Pectus deformity. Cerclage wires in the sternum. Surgical clips overlying anterior manubrium. CT/CT chest wo IV con IMPRESSION: Well-inflated lungs. Pectus deformity and postsurgical changes to the sternum. Fleischner guidelines were followed.
== END 2023-01-12 14:06 | disposition home or self-care (01) ==
LOC: HO.CT 14:05
PROVIDERS: Visit Provider Nurse Practitioner Family
DX: J44.9 Chronic obstructive pulmonary disease, unspecified (principal)
CPT/HCPCS: 71250

== ENCOUNTER 2023-01-12 14:33 | Emergency (ER) | payer OTHER, SELFPAY | END 2023-01-12 15:36 | disposition left against medical advice (07) | PROVIDERS: Emergency Provider Emergency Medicine; PCP Internal Medicine | DX: S99.921A Unspecified injury of right foot, initial encounter (principal); X58.XXXA Exposure to other specified factors, initial encounter; Y93.9 Activity, unspecified; Y92.9 Unspecified place or not applicable; Y99.9 Unspecified external cause status ==

== ENCOUNTER → 2023-02-05 13:15 | Outpatient (REF) | payer OTHER, SELFPAY ==
--- NOTE | 2023-02-05 13:19 | ECG_ITS ---
Test Reason : CHEST PAIN Blood Pressure : / mmHG Vent. Rate : 079 BPM Atrial Rate : 079 BPM P-R Int : 156 ms QRS Dur : 090 ms QT Int : 366 ms P-R-T Axes : 072 090 068 degrees QTc Int : 419 ms Normal sinus rhythm Biatrial enlargement Rightward axis RSR' or QR pattern in V1 suggests right ventricular conduction delay Anterior infarct , age undetermined Abnormal ECG No previous ECGs available Referred By: Zulma Love Electronically Signed By:Lance Higgins
== END ==
LOC: HO.CARD 13:15
PROVIDERS: PCP Internal Medicine; Visit Provider Internal Medicine
DX: R07.9 Chest pain, unspecified (principal)
CPT/HCPCS: 93005

== ENCOUNTER → 2023-02-05 13:19 | Outpatient (BNV) | payer OTHER, SELFPAY | PROVIDERS: PCP Internal Medicine; Visit Provider Internal Medicine Cardiovascular Disease | DX: R94.31 Abnormal electrocardiogram [ECG] [EKG] (principal); R07.9 Chest pain, unspecified | CPT/HCPCS: 93010 ==

== ENCOUNTER 2023-02-10 12:58 | Outpatient (AMB) | payer OTHER, SELFPAY ==
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
[2023-02-10 13:21] VITALS: BP 102/66; BMI 16.6
== END 2023-02-10 13:40 | disposition home or self-care (01) ==
LOC: HO.HWS 12:58
PROVIDERS: PCP Internal Medicine; Visit Provider Obstetrics & Gynecology
DX: N93.9 Abnormal uterine and vaginal bleeding, unspecified (principal); Z32.02 Encounter for pregnancy test, result negative
CPT/HCPCS: 58100

== ENCOUNTER 2023-02-10 12:58 | Outpatient (REF) | payer OTHER, SELFPAY | END 2023-02-10 12:59 | disposition home or self-care (01) | LOC: HO.LNP 12:58 | PROVIDERS: PCP Internal Medicine; Visit Provider Obstetrics & Gynecology | DX: N93.9 Abnormal uterine and vaginal bleeding, unspecified (principal) | CPT/HCPCS: 58100; 81025; 88305 ==

== ENCOUNTER → 2023-03-17 09:50 | Outpatient (REF) | payer OTHER, SELFPAY ==
--- NOTE | ~2023-03-17 | NM_ITS ---
Lexiscan Myocardial perfusion study Indication: Chest pain, shortness of breath, assess for ischemia Technique: The patient was brought in for a Lexiscan perfusion study on 03/17/2023 and was injected 0.4 mg of Lexiscan intravenously. Within a minute of this injection 25 mCi of sestamibi was given intravenously. Images were obtained using the SPECT gamma camera interlaced with the gating device. Images were obtained in supine position. Resting perfusion study was performed on 03/18/2023. Patient was administered 25 mCi of sestamibi intravenously at rest. Images were then obtained in supine position. Images were processed with the software and compared side to side in short axis, horizontal long axis and vertical long axis views. Total DLP 77mGy-cm. Findings: Raw acquisition reviewed. The stress perfusion study showed no significant perfusion abnormality. Both uncorrected as well as CT attenuation corrected images were reviewed. The gated study shows normal LV systolic function with calculated LVEF of 57%. LV cavity is normal in size. The gated study shows normal wall thickening and contraction of segments. Resting study shows no significant perfusion abnormality. Gating at rest reveals normal wall motion with ejection fraction at 64%. The findings are consistent with no clear reversible or fixed perfusion abnormality. NM/NM cardiolite stress test Impression: 1. Myocardial perfusion imaging study shows normal myocardial perfusion. 2. Gated LVEF is 57% during stress and 64% during rest. 3. Transient ischemic dilatation not present. EKG component of the test reported separately.
--- NOTE | 2023-03-17 09:53 | CA_ITS ---
Acquisition Time: 2023-03-17 10:04:45 Total Exercise Time: 00:02:00 Test Indications: CP, SOB Medications: Protocol: LEXISCAN Max HR: 150 BPM 81% of Pred: 183 BPM Max BP: 118/064 mmHG Max Work Load: 1.0 METS Pharmacological stress test with Lexiscan injection while sitting and kicking her legs, without anginal symptoms, with isolated PACs and PVCs, with normotensive response to injection, with nondiagnositic EKGs. Aminophyine 75mg IVP given to reverse Lexiscan. Nuclear images pending. Referred By: Zulma Love Overread By: Miguelina Rausch
== END ==
LOC: HO.CARD 09:50
PROVIDERS: PCP Internal Medicine; Visit Provider Internal Medicine
DX: R07.9 Chest pain, unspecified (principal)
CPT/HCPCS: 78452; 93017; A9500; J0280; J2785

== ENCOUNTER → 2023-03-17 09:53 | Outpatient (BNV) | payer OTHER, SELFPAY | PROVIDERS: PCP Internal Medicine; Visit Provider Nurse Practitioner | DX: R07.9 Chest pain, unspecified (principal) | CPT/HCPCS: 78452; 93016; 93018 ==

== ENCOUNTER 2023-06-16 12:01 | Outpatient (AMB) | payer OTHER, SELFPAY ==
[2023-06-16 14:03] VITALS: BP 116/68; PULSE 88; TEMP 36.8; O2SAT 99; BMI 18.6
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
== END 2023-06-16 14:50 | disposition home or self-care (01) ==
PROVIDERS: PCP Internal Medicine; Visit Provider Internal Medicine
DX: J44.9 Chronic obstructive pulmonary disease, unspecified (principal)
CPT/HCPCS: 99213

== ENCOUNTER 2023-06-16 16:28 | Outpatient (REF) | payer OTHER, SELFPAY ==
[2023-06-16 17:34] LABS: Influenza A PCR NEGATIVE (Negative); Influenza B PCR NEGATIVE (Negative); Resp Syncy Virus RNA Qual PCR NEGATIVE (Negative); SARS COV2 PCR INHOUSE NEGATIVE (Negative)
== END 2023-06-16 16:29 | disposition home or self-care (01) ==
LOC: HO.HMGCLNP 16:28
PROVIDERS: Visit Provider Internal Medicine
DX: R43.9 Unspecified disturbances of smell and taste (principal); Z11.52 Encounter for screening for COVID-19
CPT/HCPCS: 0241U

== ENCOUNTER 2023-06-18 11:31 | Emergency (ER) | payer OTHER, SELFPAY ==
--- NOTE | ~2023-06-18 | XR_ITS ---
EXAMINATION: XR CHEST CLINICAL INFORMATION: Shortness of breath. COMPARISON: August 15, 2022. TECHNIQUE: Frontal view of the chest was obtained. FINDINGS: The patient is minimally rotated. The cardiomediastinal silhouette is within normal limits and stable. There is no focal lung consolidation or pleural effusion. The bony structures and soft tissues are unremarkable. XR/XR chest 1V IMPRESSION: No active cardiopulmonary disease.
--- NOTE | ~2023-06-18 | CT_ITS ---
EXAMINATION: CT ANGIOGRAM OF THE CHEST WITH AND WITHOUT CONTRAST (CT PULMONARY ANGIOGRAM FOR PE) CLINICAL INFORMATION: Reason for Exam dimer + tachycarding, sob COMPARISON: None available. TECHNIQUE: Prior to contrast administration, noncontrast localization images were obtained. Subsequently, multidetector volumetric imaging was performed from the thoracic inlet to below the diaphragms following the administration of 80 mL Omnipaque 350 intravenous contrast. No contrast reaction reported Sagittal, coronal, and MIP oblique sagittal reformatted images were obtained on the CT workstation, uploaded to PACS, and reviewed. This CT examination was performed using dose optimization techniques as appropriate, variously including the following: *Automated exposure control *Adjustment of mA and/or kV according to patient size (this includes techniques or standardized protocols for targeted exams where dose is matched to indication/reason for exam; i.e. extremities or head) *Use of iterative reconstruction technique Total exam dose-length product 158 mGy-cm FINDINGS: QUALITY OF STUDY/CONTRAST BOLUS: Satisfactory. PULMONARY ARTERIES: No pulmonary emboli. THORACIC AORTA: No aneurysm. LUNG: No focal consolidation, nodules or masses. PLEURA: No pleural effusion or pneumothorax. MEDIASTINUM: Normal heart size. No pericardial effusion. No hilar or mediastinal lymphadenopathy. No evidence of septal bowing or right heart strain. CORONARY ARTERY CALCIFICATION: None visualized on this study. CHEST WALL/AXILLA: No axillary or internal mammary lymphadenopathy. OSSEOUS STRUCTURES: No acute or suspicious osseous abnormality. UPPER ABDOMEN: Visualized liver, spleen and pancreas unremarkable. No reflux of contrast into the hepatic veins to suggest elevated right heart pressures. CT/CT angio chest PE protocol IMPRESSION: 1. No evidence of PE. 2. No evidence of aortic aneurysm. VTE: negative.
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
[2023-06-18 11:43] VITALS: BP 144/62; PULSE 125; RESP 22; TEMP 36.8; O2SAT 98; BMI 18.8
--- NOTE | 2023-06-18 11:45 | ECG_ITS ---
Test Reason : sob Blood Pressure : / mmHG Vent. Rate : 125 BPM Atrial Rate : 125 BPM P-R Int : 140 ms QRS Dur : 082 ms QT Int : 302 ms P-R-T Axes : 077 118 054 degrees QTc Int : 435 ms Sinus tachycardia with Premature supraventricular complexes Biatrial enlargement Left posterior fascicular block Anterior infarct (cited on or before 05-FEB-2023) Abnormal ECG When compared with ECG of 05-FEB-2023 13:23, Premature supraventricular complexes are now Present Vent. rate has increased BY 46 BPM Referred By: Rochelle Godoy Electronically Signed By:CARLITOS LYNCH MD
[2023-06-18 12:08] VITALS: PULSE 124
[2023-06-18] MEDS: levalbuterol HCL 3.75 MG, Ipratropium Bromide 0.5 MG INHALE (12:11)
[2023-06-18 12:34] LABS: MANUAL DIFF FLAG NO
[2023-06-18 12:49] LABS: Basophils Percent Auto 0.2 % (0-2); Hematocrit 40.1 % (37.0-47.0); Hemoglobin 13.4 g/dl (12.0-16.0); Imm Gran Abs Auto 0.01 X10*3/uL (0.00-0.03); Imm Gran Pct Auto 0.2 % (0.0-0.4); Lymphocytes Absolute Auto 1.2 X10*3/uL (1.2-4.9); Mean Corpuscular HGB Conc 33.4 g/dl (31.0-35.0); Mean Corpuscular Volume 89.9 fL (80.0-98.0); Mean Platelet Volume 10.9 fL (9.4-12.3); Monocytes Absolute Auto 0.1 X10*3/uL (0.1-1.2); Monocytes Percent Auto 1.4 % (2-11); Neutrophils Absolute Auto 3.8 x10*3/uL (2.0-8.3); Neutrophils Percent Auto 74.2 % (45-73); Platelet Count 297 X10*3/uL (160-400); Red Blood Count 4.46 X10*6/uL (4.20-5.50); Red Cell Distribution Width 12.9 % (11.0-16.0); White Blood Count 5.1 X10*3/uL (4.8-10.8)
[2023-06-18 12:50] LABS: Prothrombin Time 11.9 SEC (11.1-13.3)
[2023-06-18 12:59] LABS: Alanine Aminotransferase 14 U/L (0-31); Albumin Level 4.6 g/dL (3.5-5.0); Alkaline Phosphatase 48 U/L (39-117); Anion Gap 14 (12-20); Aspartate Amino Transferase 16 U/L (5-31); Bilirubin Direct 0.2 mg/dL (0.0-0.5); Bilirubin Total 0.4 mg/dL (0.0-1.0); Blood Urea Nitrogen 13 mg/dL (9-16); Calcium 9.5 mg/dL (8.4-10.2); Carbon Dioxide 16 mmol/L (22-29); Chloride 111 mmol/L (96-108); Creatinine Clr Calc Pharmacy 83.7; Estimated Glomerular Filt Rate > 60; Glucose Random 158 mg/dL (60-115); Potassium 4.2 mmol/L (3.3-5.1); Sodium 137 mmol/L (135-145)
[2023-06-18 13:03] LABS: B Type Natriuretic Peptide < 10 pg/mL (<100)
[2023-06-18 13:20] LABS: Troponin-I High Sensitivity < 2.7 ng/L (<3.5-17.0)
[2023-06-18 13:22] LABS: Lactic Acid 4.2 mmol/L (0.5-2.0)
[2023-06-18 13:22] LABS: COVID-19 Test Negative (Negative); IDNOW Serial# 08D9AD1C; IDNOW Serial# BCCEAD1C; Influenza A Negative (Negative); Influenza B2 Positive (Negative)
[2023-06-18] MEDS: LORazepam 1 MG TABLET PO (13:28)
[2023-06-18 13:36] LABS: D Dimer High Sensitivity 360 NG/ML
[2023-06-18 13:39] VITALS: BP 176/74; PULSE 118; RESP 22; O2SAT 97
[2023-06-18 14:50] LABS: Reflex Lactate? Lactic Acid Added
[2023-06-18 15:19] VITALS: BP 146/71; PULSE 128; RESP 16; TEMP 36.5; O2SAT 96
--- NOTE | 2023-06-18 15:24 | MHC.EDTECH ---
This pct assumed care of patient at 1500 ,vitals taken ,HARJINDER aMrtinez is aware of Patient high hr ,Pt was hooked up to lunchroom monitor by this pct ,Lactic acid drawn and sent to lab .
[2023-06-18] MEDS: iohexoL 350 MG/ML 100 ML INFUS..BTL IV (15:55)
[2023-06-18 16:15] LABS: ~Lactic Acid-LAB USE ONLY 3.5 mmol/L (0.5-2.0)
[2023-06-18 17:35] LABS: Reflex Lactate? 2 Y
[2023-06-18 17:39] VITALS: BP 128/65; PULSE 110; RESP 16; O2SAT 98
--- NOTE | 2023-06-18 17:40 | MHC.EDTECH ---
Provider Kristian said no need to draw 3 rd repeated lactic acid .
== END 2023-06-18 17:46 | disposition home or self-care (01) ==
PROVIDERS: Physician Assistant; Emergency Provider Emergency Medicine; PCP Internal Medicine
DX: J10.1 Influenza due to other identified influenza virus with other respiratory manifestations (principal); R06.02 Shortness of breath; J45.909 Unspecified asthma, uncomplicated; Z11.52 Encounter for screening for COVID-19; Z20.822 Contact with and (suspected) exposure to COVID-19; Z79.899 Other long term (current) drug therapy
CPT/HCPCS: 36415; 71045; 71275; 80048; 80076; 83605; 83880; 84484; 85025; 85379; 85610; 87040; 87502; 87635; 93005; 94640; 99285; Q9967

== ENCOUNTER → 2023-06-18 11:45 | Outpatient (BNV) | payer OTHER, SELFPAY | PROVIDERS: Emergency Provider Emergency Medicine; PCP Internal Medicine; Visit Provider Internal Medicine Cardiovascular Disease | DX: R00.0 Tachycardia, unspecified (principal); I49.49 Other premature depolarization; I51.7 Cardiomegaly | CPT/HCPCS: 93010 ==

== ENCOUNTER 2023-07-02 14:56 | Outpatient (AMB) | payer OTHER, SELFPAY ==
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
== END 2023-07-02 15:33 | disposition home or self-care (01) ==
PROVIDERS: PCP Internal Medicine; Visit Provider Nurse Practitioner Family
DX: N30.10 Interstitial cystitis (chronic) without hematuria (principal); R39.9 Unspecified symptoms and signs involving the genitourinary system; R39.15 Urgency of urination; R35.1 Nocturia
CPT/HCPCS: 99204

== ENCOUNTER → 2023-07-02 14:56 | Outpatient (BNVA) | payer OTHER, SELFPAY | PROVIDERS: PCP Internal Medicine; Visit Provider Nurse Practitioner Family | DX: N30.10 Interstitial cystitis (chronic) without hematuria (principal); R39.9 Unspecified symptoms and signs involving the genitourinary system; R39.15 Urgency of urination; R35.1 Nocturia | CPT/HCPCS: 51798; 81003; 99202 ==

== ENCOUNTER 2023-07-08 14:01 | Outpatient (AMB) | payer OTHER, SELFPAY ==
[2023-07-08 14:21] VITALS: BP 132/68; PULSE 122; O2SAT 97; BMI 18.6
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
== END 2023-07-08 14:49 | disposition home or self-care (01) ==
PROVIDERS: PCP Internal Medicine; Visit Provider Nurse Practitioner Family
DX: J44.9 Chronic obstructive pulmonary disease, unspecified (principal); Z91.09 Other allergy status, other than to drugs and biological substances; R06.00 Dyspnea, unspecified
CPT/HCPCS: 99214

== ENCOUNTER → 2023-07-08 14:01 | Outpatient (BNVA) | payer OTHER, SELFPAY | PROVIDERS: PCP Internal Medicine; Visit Provider Nurse Practitioner Family | DX: J44.9 Chronic obstructive pulmonary disease, unspecified (principal); R06.00 Dyspnea, unspecified; Z91.09 Other allergy status, other than to drugs and biological substances | CPT/HCPCS: 99212 ==

== ENCOUNTER 2023-08-04 15:03 | Outpatient (AMB) | payer OTHER, SELFPAY ==
[2023-08-04 15:04] VITALS: BP 128/64; PULSE 103; O2SAT 95; BMI 18.6
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
== END 2023-08-04 15:55 | disposition home or self-care (01) ==
PROVIDERS: PCP Internal Medicine; Visit Provider Nurse Practitioner Family
DX: R07.9 Chest pain, unspecified (principal); Q67.6 Pectus excavatum; J44.9 Chronic obstructive pulmonary disease, unspecified
CPT/HCPCS: 99214

== ENCOUNTER → 2023-08-04 15:03 | Outpatient (BNVA) | payer OTHER, SELFPAY | PROVIDERS: PCP Internal Medicine; Visit Provider Nurse Practitioner Family | DX: Q67.6 Pectus excavatum (principal); R07.9 Chest pain, unspecified; J44.9 Chronic obstructive pulmonary disease, unspecified | CPT/HCPCS: 99212 ==

== ENCOUNTER 2023-08-10 14:15 | Outpatient (REF) | payer OTHER, SELFPAY ==
--- NOTE | ~2023-08-10 | XR_ITS ---
EXAMINATION: XR CHEST CLINICAL INFORMATION: Chest pain, unspecified COMPARISON: Chest 06/18/2023 TECHNIQUE: 2 views of the chest were obtained. FINDINGS: The lungs are hyperinflated with flattening of the hemidiaphragms. No focal consolidation, interstitial pulmonary edema or pneumothorax. The cardiomediastinal sweat is within normal limits. There are no pleural effusions. There is mild curve of the thoracic spine, convex right. 2 sternal wires are seen and are intact. XR/XR chest 2V IMPRESSION: No acute cardiopulmonary disease.
== END 2023-08-10 14:16 | disposition home or self-care (01) ==
LOC: HO.XRAY 14:15
PROVIDERS: PCP Internal Medicine; Visit Provider Nurse Practitioner Family
DX: R07.9 Chest pain, unspecified (principal)
CPT/HCPCS: 71046

== ENCOUNTER 2023-08-19 14:59 | Outpatient (AMB) | payer OTHER, SELFPAY ==
[2023-08-19 15:02] VITALS: BP 118/64; PULSE 116; O2SAT 98; BMI 18.8
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
== END 2023-08-19 15:19 | disposition home or self-care (01) ==
PROVIDERS: PCP Internal Medicine; Visit Provider Nurse Practitioner Family
DX: J44.9 Chronic obstructive pulmonary disease, unspecified (principal); Q67.6 Pectus excavatum; Z01.811 Encounter for preprocedural respiratory examination
CPT/HCPCS: 99214

== ENCOUNTER → 2023-08-19 14:59 | Outpatient (BNVA) | payer OTHER, SELFPAY | PROVIDERS: PCP Internal Medicine; Visit Provider Nurse Practitioner Family | DX: Z01.811 Encounter for preprocedural respiratory examination (principal); J44.9 Chronic obstructive pulmonary disease, unspecified; Q67.6 Pectus excavatum | CPT/HCPCS: 99212 ==

== ENCOUNTER 2023-08-25 13:23 | Outpatient (AMB) | payer OTHER, SELFPAY ==
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
== END 2023-08-25 14:03 | disposition home or self-care (01) ==
LOC: HO.HUSH 13:23
PROVIDERS: PCP Internal Medicine; Visit Provider Nurse Practitioner Family
DX: R35.1 Nocturia (principal); R39.15 Urgency of urination; R39.9 Unspecified symptoms and signs involving the genitourinary system; N30.10 Interstitial cystitis (chronic) without hematuria
CPT/HCPCS: 99214

== ENCOUNTER → 2023-08-25 13:23 | Outpatient (BNVA) | payer OTHER, SELFPAY | PROVIDERS: PCP Internal Medicine; Visit Provider Nurse Practitioner Family ==

== ENCOUNTER 2023-08-31 12:17 | Day surgery (SDC) | payer OTHER, SELFPAY ==
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
[2023-08-31 13:48] VITALS: BMI 19.3
[2023-08-31 13:53] VITALS: BP 126/55; PULSE 89; RESP 16; TEMP 36.5; O2SAT 96
[2023-08-31] MEDS: Lactated Ringers 1,000 ML 100 ML IVCONT (14:10)
[2023-08-31] MEDS: levoFLOXacin 500 MG TABLET PO (14:11)
[2023-08-31 14:20] LABS: UPreg QC Valid YES; Urine Pregnancy NEGATIVE (NEGATIVE)
--- NOTE | 2023-08-31 14:42 | MHC.SHP ---
Pre-Procedural Eval Section A - 24 Hr Update-Section A only Date of Service: 08/31/23 The patient is an INPATIENT: No Changes since office visit: No Cold of Flu in the past 2 weeks, No New Medical Problems, No Changes in Medication and No Patient answered all questions The patient has been examined within 24 hours of the surgical procedure. The History & Physical has been completed within 30 days and I have reviewed it.: Yes Section B - Complete if H&P > 30 days Chief Complaint: Interstitial cystitis (chronic) without hematuria Allergies: Allergies Allergy/AdvReac Type Severity Reaction Status Date / Time amoxicillin [AMOXICILLIN] Allergy Severe ANAPHYLAXIS, Verified 08/25/23 13:54 swelling bupropion [From WELLBUTRIN] Allergy Severe SEIZURES Verified 08/25/23 13:54 duloxetine [From CYMBALTA] Allergy Intermediate diarrhea Verified 08/25/23 13:54 adhesive tape AdvReac Intermediate Rash Verified 08/25/23 13:54 apple AdvReac Intermediate projectile Verified 08/25/23 13:54 vomiting banana AdvReac Intermediate projectile Verified 08/25/23 13:54 vomiting Plan Diagnosis/Plan: Unchanged (hydrodistention) I have reviewed the history and physical and performed a pertinent physical examination on my patient. No changes have occurred unless specified. Time Spent With Patient Time: Total time managing care of this patient today ____ minutes.
[2023-08-31 15:19] VITALS: BP 101/65; PULSE 68; RESP 16; TEMP 36.6; O2SAT 100
[2023-08-31 15:24] VITALS: BP 102/60; PULSE 71; RESP 16; O2SAT 100
[2023-08-31 15:29] VITALS: BP 108/64; PULSE 73; RESP 16; O2SAT 100
[2023-08-31 15:34] VITALS: BP 118/75; PULSE 106; RESP 18; TEMP 36.6; O2SAT 99
--- NOTE | 2023-08-31 15:40 | P.OP_ITS ---
Operative Note Operative Note Date of Service: 08/31/23 Narrative: PreOperative Diagnosis: Interstitial cystitis with pelvic pain Post Operative Diagnosis: Interstitial cystitis with pelvic pain Procedure: Hydrodistention Surgeon: Dr Francesco Kunz Anesthesia: General Indications for procedure: persistent nocturia Last hydrodistention 2019 Positive benefit from tadalafil Procedure: After informed consent was verified the patient was brought to the operating room and placed in a supine position. Anesthesia was administered per protocol. The patient was placed in a modified dorsal lithotomy position and prepped and draped in sterile fashion. Safety pause time-out was observed. Antibiotics being given. A 22 Frisian cystoscope was used to empty the bladder. A mixture of bupivacaine lidocaine gel 20 cc was instilled into the bladder and allowed to sit for 2-3 minutes. Hydrodistention of the bladder was performed. The bladder was filled and allowed to sit for 2 minutes. Filling was from a height of 1 m. On the 1st fill there was 550 cc within the bladder. Cystoscopy revealed glomerulations consistent with interstitial cystitis. Second filling of the bladder was performed in similar fashion. Volume was approximately 550 cc. Terminal hematuria noted. The the bladder was emptied. The patient tolerated procedure well was extubated in operating room transferred in stable condition to the recovery area. Appropriate postprocedure pain medication was provided. Pathology: Drains: None
[2023-08-31] MEDS: ondansetron HCL 4 MG/2 ML VIAL IVPUSH (15:45)
[2023-08-31 15:49] VITALS: BP 116/65; PULSE 92; RESP 16; TEMP 36.8; O2SAT 97
[2023-08-31] MEDS: oxyCODONE HCl Immed Release 5 MG TABLET PO (15:53)
== END 2023-08-31 16:21 | disposition home or self-care (01) ==
PROVIDERS: Nurse Practitioner; PCP Internal Medicine; Visit Provider Urology
PROC: 0T7B7ZZ Dilation of Bladder, Via Natural or Artificial Opening (ICD-10-PCS; CPT 52260; principal; 2023-08-31 14:20)
DX: N30.10 Interstitial cystitis (chronic) without hematuria (principal); R10.2 Pelvic and perineal pain; R31.9 Hematuria, unspecified; R35.1 Nocturia; R39.15 Urgency of urination; Z88.1 Allergy status to other antibiotic agents; Z88.8 Allergy status to other drugs, medicaments and biological substances; L23.1 Allergic contact dermatitis due to adhesives; Z79.51 Long term (current) use of inhaled steroids; Z79.899 Other long term (current) drug therapy; Z87.891 Personal history of nicotine dependence
CPT/HCPCS: 52260; 81025; J0131; J1100; J2250; J2405; J2704; J3010

== ENCOUNTER → 2023-08-31 12:17 | Outpatient (BNV) | payer OTHER, SELFPAY | PROVIDERS: PCP Internal Medicine; Visit Provider Urology | DX: N30.10 Interstitial cystitis (chronic) without hematuria (principal) | CPT/HCPCS: 52260 ==

== ENCOUNTER → 2023-09-10 13:28 | Outpatient (BNVA) | payer OTHER, SELFPAY | PROVIDERS: PCP Internal Medicine; Visit Provider Nurse Practitioner Family | DX: N30.10 Interstitial cystitis (chronic) without hematuria (principal); R35.1 Nocturia; R39.15 Urgency of urination; R39.9 Unspecified symptoms and signs involving the genitourinary system | CPT/HCPCS: 51798 ==

== ENCOUNTER 2023-09-14 09:53 | Outpatient (AMB) | payer OTHER, SELFPAY ==
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
[2023-09-14 10:03] VITALS: BP 96/58; PULSE 96; RESP 16; O2SAT 96; BMI 18.5
== END 2023-09-14 10:45 | disposition home or self-care (01) ==
PROVIDERS: PCP Internal Medicine; Visit Provider Physician Assistant
DX: F41.1 Generalized anxiety disorder (principal); Q67.6 Pectus excavatum
CPT/HCPCS: 99214

== ENCOUNTER 2023-10-09 11:59 | Outpatient (AMB) | payer OTHER, SELFPAY ==
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
== END 2023-10-09 12:27 | disposition home or self-care (01) ==
PROVIDERS: PCP Internal Medicine; Visit Provider Nurse Practitioner Family
DX: R35.1 Nocturia (principal); R39.15 Urgency of urination; R39.9 Unspecified symptoms and signs involving the genitourinary system; N30.10 Interstitial cystitis (chronic) without hematuria; Z13.9 Encounter for screening, unspecified
CPT/HCPCS: 99213

== ENCOUNTER → 2023-10-09 11:59 | Outpatient (BNVA) | payer OTHER, SELFPAY | PROVIDERS: PCP Internal Medicine; Visit Provider Nurse Practitioner Family | DX: R35.1 Nocturia (principal); R39.15 Urgency of urination; R39.9 Unspecified symptoms and signs involving the genitourinary system; N30.10 Interstitial cystitis (chronic) without hematuria | CPT/HCPCS: 81003; 99212 ==

== ENCOUNTER 2023-11-17 15:54 | Outpatient (AMB) | payer OTHER, SELFPAY ==
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
[2023-11-17 16:01] VITALS: BP 102/70; BMI 17.4
== END 2023-11-17 17:26 | disposition home or self-care (01) ==
PROVIDERS: PCP Internal Medicine; Visit Provider Internal Medicine
DX: Z00.00 Encounter for general adult medical examination without abnormal findings (principal); J44.9 Chronic obstructive pulmonary disease, unspecified
CPT/HCPCS: 99395

== ENCOUNTER 2023-11-27 10:35 | Outpatient (REF) | payer OTHER, SELFPAY ==
[2023-11-27 10:47] LABS: MANUAL DIFF FLAG NO
[2023-11-27 11:06] LABS: Basophils Absolute Auto 0.1 X10*3/uL (0.0-0.2); Basophils Percent Auto 0.8 % (0-2); Eosinophils Absolute Auto 0.7 X10*3/uL (0.0-0.4); Eosinophils Percent Auto 11.8 % (0-4); Hematocrit 41.3 % (37.0-47.0); Hemoglobin 13.8 g/dl (12.0-16.0); Imm Gran Abs Auto 0.01 X10*3/uL (0.00-0.03); Imm Gran Pct Auto 0.2 % (0.0-0.4); Lymphocytes Absolute Auto 3.2 X10*3/uL (1.2-4.9); Lymphocytes Percent Auto 52.3 % (20-40); Mean Corpuscular HGB Conc 33.4 g/dl (31.0-35.0); Mean Corpuscular Hemoglobin 30.3 pg (27.0-33.0); Mean Corpuscular Volume 90.8 fL (80.0-98.0); Mean Platelet Volume 10.1 fL (9.4-12.3); Monocytes Absolute Auto 0.4 X10*3/uL (0.1-1.2); Neutrophils Absolute Auto 1.8 x10*3/uL (2.0-8.3); Neutrophils Percent Auto 28.9 % (45-73); Platelet Count 285 X10*3/uL (160-400); Red Blood Count 4.55 X10*6/uL (4.20-5.50); Red Cell Distribution Width 12.9 % (11.0-16.0); White Blood Count 6.2 X10*3/uL (4.8-10.8)
[2023-11-27 12:17] LABS: Alanine Aminotransferase 13 U/L (0-31); Albumin Level 4.3 g/dL (3.5-5.0); Alkaline Phosphatase 53 U/L (39-117); Anion Gap 12 (12-20); Aspartate Amino Transferase 14 U/L (5-31); Bilirubin Total 0.4 mg/dL (0.0-1.0); Blood Urea Nitrogen 11 mg/dL (9-16); Calcium 9.6 mg/dL (8.4-10.2); Carbon Dioxide 23 mmol/L (22-29); Chloride 110 mmol/L (96-108); Cholesterol 145 mg/dL (<200); Estimated Glomerular Filt Rate > 60; Glucose Fasting 93 mg/dL (60-99); HDL Cholesterol 52 mg/dL (>40); LDL Cholesterol Calculated 81 mg/dL (<100); Potassium 4.1 mmol/L (3.3-5.1); Sodium 141 mmol/L (135-145); Total Protein 6.6 g/dL (6.5-8.0); Triglycerides 60 mg/dL (<150)
== END 2023-11-27 10:36 | disposition home or self-care (01) ==
LOC: HO.LAB 10:35
PROVIDERS: PCP Internal Medicine; Visit Provider Internal Medicine
DX: Z00.00 Encounter for general adult medical examination without abnormal findings (principal); E55.9 Vitamin D deficiency, unspecified; Z91.09 Other allergy status, other than to drugs and biological substances; D64.9 Anemia, unspecified
CPT/HCPCS: 36415; 80053; 80061; 82306; 85025

== ENCOUNTER 2024-03-08 13:30 | Outpatient (AMB) | payer OTHER, SELFPAY ==
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
[2024-03-08 14:03] VITALS: BP 100/52; PULSE 115; O2SAT 98; BMI 18.6
== END 2024-03-08 14:27 | disposition home or self-care (01) ==
PROVIDERS: PCP Internal Medicine; Visit Provider Nurse Practitioner Family
DX: J44.9 Chronic obstructive pulmonary disease, unspecified (principal); Q67.6 Pectus excavatum
CPT/HCPCS: 99214

== ENCOUNTER → 2024-03-08 13:30 | Outpatient (BNVA) | payer OTHER, SELFPAY | PROVIDERS: PCP Internal Medicine; Visit Provider Nurse Practitioner Family | DX: J44.9 Chronic obstructive pulmonary disease, unspecified (principal); Q67.6 Pectus excavatum; F12.90 Cannabis use, unspecified, uncomplicated; Z87.891 Personal history of nicotine dependence | CPT/HCPCS: 99212 ==

== ENCOUNTER → 2024-04-06 15:39 | Outpatient (AMB) | payer OTHER, SELFPAY ==
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
== END ==
PROVIDERS: PCP Internal Medicine; Visit Provider Nurse Practitioner Family
DX: N30.10 Interstitial cystitis (chronic) without hematuria (principal); R35.1 Nocturia; Z13.9 Encounter for screening, unspecified
CPT/HCPCS: 99214

== ENCOUNTER → 2024-04-06 15:39 | Outpatient (BNVA) | payer OTHER, SELFPAY | PROVIDERS: PCP Internal Medicine; Visit Provider Nurse Practitioner Family | DX: N30.10 Interstitial cystitis (chronic) without hematuria (principal); R35.1 Nocturia | CPT/HCPCS: 51798; 81003; 99212 ==

== ENCOUNTER 2024-04-08 16:09 | Outpatient (REF) | payer OTHER, SELFPAY ==
[2024-04-08 16:35] LABS: MANUAL DIFF FLAG NO
[2024-04-08 17:11] LABS: Basophils Absolute Auto 0.1 X10*3/uL (0.0-0.2); Basophils Percent Auto 0.8 % (0-2); Eosinophils Absolute Auto 0.3 X10*3/uL (0.0-0.4); Eosinophils Percent Auto 5.4 % (0-4); Hematocrit 43.7 % (37.0-47.0); Hemoglobin 14.7 g/dl (12.0-16.0); Imm Gran Abs Auto 0.01 X10*3/uL (0.00-0.03); Imm Gran Pct Auto 0.2 % (0.0-0.4); Lymphocytes Absolute Auto 2.7 X10*3/uL (1.2-4.9); Lymphocytes Percent Auto 43.6 % (20-40); Mean Corpuscular HGB Conc 33.6 g/dl (31.0-35.0); Mean Corpuscular Hemoglobin 29.5 pg (27.0-33.0); Mean Corpuscular Volume 87.6 fL (80.0-98.0); Mean Platelet Volume 10.8 fL (9.4-12.3); Monocytes Absolute Auto 0.6 X10*3/uL (0.1-1.2); Monocytes Percent Auto 9.6 % (2-11); Neutrophils Absolute Auto 2.5 x10*3/uL (2.0-8.3); Neutrophils Percent Auto 40.4 % (45-73); Platelet Count 331 X10*3/uL (160-400); Red Blood Count 4.99 X10*6/uL (4.20-5.50); Red Cell Distribution Width 14.5 % (11.0-16.0); White Blood Count 6.2 X10*3/uL (4.8-10.8)
[2024-04-11 22:48] LABS: Immunoglobulin E 84 kU/L (<OR=114)
== END 2024-04-08 16:10 | disposition home or self-care (01) ==
LOC: HO.LAB 16:09
PROVIDERS: PCP Internal Medicine; Visit Provider Physician Assistant
DX: R11.10 Vomiting, unspecified (principal); Z91.018 Allergy to other foods
CPT/HCPCS: 36415; 82785; 85025; 86003

== ENCOUNTER 2024-04-20 15:16 | Outpatient (REF) | payer OTHER, SELFPAY ==
[2024-04-20 15:26] LABS: MANUAL DIFF FLAG NO
[2024-04-20 15:54] LABS: Basophils Absolute Auto 0.1 X10*3/uL (0.0-0.2); Basophils Percent Auto 0.9 % (0-2); Eosinophils Absolute Auto 0.4 X10*3/uL (0.0-0.4); Hematocrit 41.2 % (37.0-47.0); Hemoglobin 13.8 g/dl (12.0-16.0); Imm Gran Abs Auto 0.02 X10*3/uL (0.00-0.03); Imm Gran Pct Auto 0.3 % (0.0-0.4); Lymphocytes Absolute Auto 2.7 X10*3/uL (1.2-4.9); Lymphocytes Percent Auto 38.4 % (20-40); Mean Corpuscular HGB Conc 33.5 g/dl (31.0-35.0); Mean Corpuscular Hemoglobin 29.8 pg (27.0-33.0); Mean Platelet Volume 10.2 fL (9.4-12.3); Monocytes Absolute Auto 0.5 X10*3/uL (0.1-1.2); Monocytes Percent Auto 7.6 % (2-11); Neutrophils Absolute Auto 3.3 x10*3/uL (2.0-8.3); Neutrophils Percent Auto 46.8 % (45-73); Platelet Count 314 X10*3/uL (160-400); Red Blood Count 4.63 X10*6/uL (4.20-5.50); Red Cell Distribution Width 14.6 % (11.0-16.0)
== END 2024-04-20 15:17 | disposition home or self-care (01) ==
LOC: HO.LAB 15:16
PROVIDERS: PCP Internal Medicine; Visit Provider Physician Assistant
DX: J45.40 Moderate persistent asthma, uncomplicated (principal)
CPT/HCPCS: 36415; 85025

== ENCOUNTER 2024-06-08 14:03 | Outpatient (AMB) | payer OTHER, SELFPAY ==
[2024-06-08 14:17] VITALS: BP 104/60; PULSE 225; O2SAT 96; BMI 19.0
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
--- OUTSIDE RECORDS SUMMARY | 2024-06-09 02:41 | XMS_ITS | Continuity of Care Document ---
Author Organization [facility] vices Address [address] [place] [address] Phone Care Team Providers Care Hose Inspector Name Role Phone Unavailable Unavailable Unavailable Advance Directives Directive Yes / No Effective Date File Name No Information Encounters Encounter Description Practice Location Reason(s) For Visit Diagnoses Date Provider Providers Copied on Encounter [facility], [address] [place] [address], [facility], tel:[phone] Conversion No Information 2 No Information [facility], [address] [place] [address], [facility], tel:[phone] Conversion IRRITABLE BOWEL SYNDROMECHRONIC MAJOR DEPRESSIONCYSTI TIS CHRONIC INTERSTITIAL Apr-0 2 No Information Family History Family Member Type Diagnosis Age At Onset No Information Payers Payer name Insurance type Covered libertarian ID Authoriza tion(s) No Information Social History Type Description Quantity Date Captured Comments Sex Female Smoking Status No Information Chief Complaint And Reason For Visit No Information Reason For Referral Reason For Referral No Information History Of Present Illness Encounter Date Complaint History Of Prese nt Illness No Information Functional Status Date Functional Assessmen t No Information Instructions Date Instruction Additional Infor mation No Information Assessments Type Assessment Date No Information Patient Care Teams Name Effective Dates (start - stop) Status Members No Information
--- OUTSIDE RECORDS SUMMARY | 2024-06-09 02:41 | XMS_ITS | Continuity of Care Document ---
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 Name Role Phone Rios Love MD, Zulma Lujan Primary Care Physician [phone] Encounter [facility] [place] Date(s): 05/09/24 - 05/10/[address] [id number] Discharge Disposition: A-D/C Home Attending Physician: Colleen Barclay MD Admitting Physician: Colleen Barclay MD Referring Physician: Colleen Barclay MD Encounter Type: Disch IP Allergies, Adverse Reactions, Alerts Substance Criticality Severity Reaction Reaction Severity Status amoxicillin High criticality Severe rash and swelling Active Wellbutrin little seizures A ctive Apples and difficult breathing vomiting Active Cymbalta High criticality Severe Diarrhea Vomiting Active Bananas and difficulty breathing vomitting Active Medications albuterol inhaler (OP) 0 Refills, Maintenance Start Date: 08/26/23 Status: Ordered Repeat number: 1 cyclobenzaprine 10 mg oral tablet 10 mg, 1, tablet, By Mouth, Daily at bedtime, Refills 0, Maintenance, 08/26/23 1:27:00 PM EST, Partial fill upon patient request if the prescription is for a schedule II opioid drug. Start Date: 08/26/23 Status: Ordered Repeat number: 1 gabapentin 300 mg oral capsule 300 mg, 1, capsule, By Mouth, 3 times a day, # 63 capsule, Refills 0, Tot. Refills 0, Maintenance, 05/10/24 11:39:00 AM EST, Route to Pharmacy Electronically, [facility], Partial fill upon patient request if the prescription is for a schedule II opioid drug., 170, cm, 05/09/24 17:58:00 EST, Height, 55.7, kg, 05/09/24 17:58:00 EST, Dry Weight Start Date: 05/10/24 Stop Date: 05/31/24 Status: Ordered Quantity: 63.0 Unit: capsule Repeat number: 1 Indication: Pectus excavatum Gabapentin Capsule 300 mg, Capsule, By Mouth, 05/10/24 3:00:00 PM EST Start Date: 05/10/24 Stop Date: 05/10/24 Status: Completed Repeat number: 1 ibuprofen 200 mg oral tablet 600 mg, 3, tablet, By Mouth, 3 times a day, PRN, for 7 days, # 63 tablet, Refills 0, Tot. Refills 0, Acute 05/17/24 11:40:00 AM EST, Pain , Moderate, 05/10/24 11:40:00 AM EST, Route to Pharmacy Electronically, [facility], Partial fill upon patient request if the prescription is for a schedule II opioid drug., 170, cm, 05/09/24 17:58:00 EST, Height, 55.7, kg, 05/09/24 17:58:00 EST, Dry Weight Start Date: 05/10/24 Stop Date: 05/17/24 Status: Ordered Quantity: 63.0 Unit: tablet Repeat number: 1 metoprolol 25 mg oral tablet 12.5 mg, Tablet, By Mouth, 05/10/24 9:00:00 AM EST Start Date: 05/10/24 Stop Date: 05/10/24 Status: Completed Repeat number: 1 metoprolol 25 mg oral tablet 25 mg, 1, tablet, By Mouth, 2 times a day, # 60 tablet, Refills 0, Tot. Refills 0, Maintenance, 05/10/24 3:42:00 PM EST, Route to Pharmacy Electronically, [facility], Partial fill upon patient request if the prescription is for a schedule II opioid drug., 170, cm, 05/09/24 17:58:00 EST, Height, 55.7, kg, 05/09/24 17:58:00 EST, Dry Weight Start Date: 05/10/24 Status: Ordered Quantity: 60.0 Unit: tablet Repeat number: 1 metoprolol 25 mg oral tablet 12.5 mg, Tablet, By Mouth, 05/09/24 9:00:00 PM EST Start Date: 05/09/24 Stop Date: 05/09/24 Status: Completed Repeat number: 1 MiraLax oral powder for reconstitution = 17 Gm, By Mouth, Daily, for 7 days, # 119 Gm, 0 Refills, Acute 05/17/24 11:42:00 AM EST, 05/10/2411:42:00 AM EST, REC Powder, [facility], Partial fill upon patient request if the prescription is for a schedule II opioid drug., 17 Gm By Mouth Daily,x7 days, 170, cm, 05/09/24 17:58:00 EST, Height, 55.7, kg, 05/09/24 17:58:00 EST, Dry Weight Start Date: 05/10/24 Stop Date: 05/17/24 Status: Ordered Quantity: 119.0 Unit: g Repeat number: 1 oxyCODONE 5 mg oral tablet 5 mg, 1, tablet, By Mouth, Every 4 hours, PRN, for 7 days, # 42 tablet, Refills 0, Tot. Refills 0, Acute 05/17/24 11:40:00 AM EST, Pain , Moderate, 05/10/24 11:40:00 AM EST, Route to Pharmacy Electronically, [facility], Partial fill upon patient request if the prescription is for a schedule II opioid drug., 170, cm, 05/09/24 17:58:00 EST, Height, 55.7, kg, 05/09/24 17:58:00 EST, DryWeight Start Date: 05/10/24 Stop Date: 05/17/24 Status: Ordered Quantity: 42.0 Unit: tablet Repeat number: 1 Indication: Pectus excavatum Symbicort 160mcg/4.5mcg Inhaler 2, puffs, Inhalation, 2 times a day, Refills 0, Maintenance, 08/26/23 1:27:00 PM EST Start Date: 08/26/23 Status: Ordered Repeat number: 1 tadalafil = 5 mg, By Mouth, Daily, 0 Refills, Maintenance, 05/09/24 5:47:00 AM EST, Partial fill upon patientrequest if the prescription is for a schedule II opioid drug. Start Date: 05/09/24 Status: Ordered Repeat number: 1 Tylenol 325 mg oral tablet 325 mg, 1, tablet, By Mouth, Every 8 hours, # 21 tablet, Refills 0, Tot. Refills 0, Soft Stop, 05/10/24 3:44:00 PM EST, Route to Pharmacy Electronically, [facility], Partial fill upon patient request if the prescription is for a schedule II opioid drug., 170, cm, 05/09/24 17:58:00 EST, Height, 55.7, kg, 05/09/24 17:58:00 EST, Dry Weight Start Date: 05/10/24 Stop Date: 05/17/24 Status: Ordered Quantity: 21.0 Unit: tablet Repeat number: 1 Valium 2 mg oral tablet 2 mg, 1, tablet, By Mouth, 3 times a day, PRN, for 5 days, # 15 tablet, Refills 0, Tot. Refills 0, Acute 05/15/24 11:40:00 AM EST, Spasm, 05/10/24 11:40:00 AM EST, Route to Pharmacy Electronically, [facility], Partial fill upon patient request if the prescription is for a schedule II opioid drug., 170, cm, 05/09/24 17:58:00 EST, Height, 55.7, kg, 05/09/24 17:58:00 EST, Dry Weight Start Date: 05/10/24 Stop Date: 05/15/24 Status: Ordered Quantity: 15.0 Unit: tablet Repeat number: 1 Problem List Condition Confirmation Course Effective Dates Status Health St atus Informant Pectus excavatum Confirmed Active Results Radiology Reports * Exam Date Time Procedure Performing Provider Status 05/10/24 6:30 AM Chest 2 Views Frontal and Lat Jame , Gisselle; Auth (Verified) Notes: (Chest 2 Views Frontal and Lat) Reason For Exam: Postop RESULT: Chest 2 Views Frontal and Lat Chest 2 Views Frontal and Lat Reason: Postop; Clinical Question(s): Postop COMPARISON: Multiple priors, most recent 05/09/2024. FINDINGS: LINES AND TUBES: Stable Juan A bar placement in expected position, unchanged. LUNGS AND PLEURA: Bibasilar atelectasis, otherwise clear lungs. Normal pulmonary vascularity. No pleural effusion. No pneumothorax. HEART, MEDIASTINUM AND CHRISTO: Heart is normal in size. Normal mediastinal and hilar contour. 2 surgical clips overlying the mediastinum, unchanged. BONES AND SOFT TISSUES: No acute abnormality. Mild subcutaneous emphysema in the left lateral chest wall. IMPRESSION: Juan A bar stable. Bibasilar atelectasis. I have personally reviewed the images and I agree with this report. WSN: [id number] Ordering Physician: Nina Denney Dictated By: Callie Smith DO Dictated Date/Time: 05/10/24 10:50 a Reviewed By: Munir Christensen MD, V Signed By: Munir Christensen MD, V Signed Date/Time: 05/10/24 10:55 am Transcribed By: CRYSTAL Transcribed Date/Time: 05/10/24 9:35 am * Exam Date Time Procedure Performing Provider Status 05/09/24 12:44 PM Chest Portable Damián Peres; Chuyita (Verified) Notes: (Chest Portable) Reason For Exam: Postop RESULT: Chest Portable Chest Portable semiupright at 12:27 PM Reason: Postop; Clinical Question(s): Postop COMPARISON: 05/04/2015 FINDINGS: LINES AND TUBES: Status post Juan A bar placement for treatment of pectus excavatum. The bar is in expected position. LUNGS AND PLEURA: Mild bilateral lower lung atelectasis. Lungs are otherwise clear with normal vascularity. No pleural effusion. No pneumothorax. HEART, MEDIASTINUM AND CHRISTO: Heart is normal in size. Normal mediastinal and hilar contour. BONES AND SOFT TISSUES: No acute osseous abnormality. Small amount of subcutaneous emphysema in the chest wall. IMPRESSION: Status post Juan A bar placement. Mild bilateral atelectasis. WSN: [id number] Ordering Physician: Nina Denney Dictated By: Anthony Thomson MD Dictated Date/Time: 05/09/24 1:14 pm Reviewed By: Anthony Thomson MD Signed By: Anthony Thomson MD Signed Date/Time: 05/09/24 1:14 pm Transcribed By: CRYSTAL Transcribed Date/Time: 05/09/24 1:11 pm Vital Signs Most recent to oldest [Reference Range]: 1 2 3 Height 170 cm (05/09/24 3:00 PM) Weight 55.7 kg (05/09/24 3:00 PM) 55.7 kg (05/09/24 6:50 AM) Oxygen Saturation [94-100 %] 97 % (05/10/24 4:00 PM) 98 % (05/10/24 2:00 PM) 98 % (05/10/24 12:00 PM) Pulse Rate [55-90 bpm] 138 bpm *H* (05/10/24 10:00 AM) 128 bpm *H* (05/10/24 9:25 AM) 105 bpm *H* (05/09/24 7:54 PM) Body Mass Index [18.5-24.99 kg/m2] 19.27 kg/m2 (05/09/24 3:00 PM) Blood Pressure [90-138/55-84 mm Hg] 123/80mm Hg (05/10/24 4:00 PM) 122/76mm Hg (05/10/24 2:00 PM) 104/68mm Hg (05/10/24 12:00 PM) Respiratory Rate [16-30 br/min] 30 br/min (05/10/24 4:00 PM) 17 br/min (05/10/24 2:49 PM) 32 br/min *H* (05/10/24 2:00 PM) Temperature [96.8-100.4 DegF] 99.7 DegF (05/10/24 10:00 AM) 98.7 DegF (05/10/24 12:50 AM) 98 DegF (05/09/24 6:00 PM) Liters per Minute 2 L/min (05/09/24 4:00 PM) 2 L/min (05/09/24 3:00 PM) 2 L/min (05/09/24 1:45 PM) Mode of Delivery (Oxygen) Room air (05/10/24 4:00 PM) Room air (05/10/24 2:00 PM) Room air (05/10/24 12:00 PM) Blood pressure sites Arm, left (05/10/24 4:00 PM) Arm, left (05/10/24 2:00 PM) Arm, left (05/10/24 12:00 PM) Temperature Route Oral (05/10/24 2:00 PM) Oral (05/10/24 10:00 AM) Oral (05/10/24 12:50 AM) Dry Weight 55.7 kg (05/09/24 3:00 PM) 55.7 kg (05/09/24 6:50 AM) Weight Obtained Via Standing scale (05/09/24 6:50 AM) Dry Weight Obtained Via Standing scale (05/09/24 6:50 AM) Social History Social History Type Response Smoking Status Former smoker; Type: Cigarettes; Other: social smoker in her early 20s; entered on: 11/23/15 Sex Sex Representation Female (finding) History and physical note * Event Display: History and Physical Hospital Authored Date: EKG study * Event Display: ECG 12-Lead Authored Date: Please click on pdf link to open report * Event Display: ECG 12-Lead Authored Date: Ventricular Rate: 183 BPM Atrial Rate: 183 BPM QRS Duration: 86 ms Q-T Interval: 228 ms QTC Calculation(Bazett): 397 ms R [place]: 83 degrees T [place]: -79 degrees Supraventricular tachycardia Marked ST abnormality, possible inferior subendocardial injury Abnormal ECG No previous ECGs available Confirmed by Cale Payton ([id number]) on 05/09/2024 3:17:42 PM Ringold: Cale Payton Cardiology * Event Display: Cardiac Rhythm Strips Authored Date: Hospital Progress note * Cecille Hays RN: SIGN, VERIFY, PERFORM Event Display: Progress Note Hospital Authored Date: Patient: VESTA HANNAH Age: 38 years Sex: Female : 1985 Associated Diagnoses: None Author: Cecille Hays RN Findings Problem Related to Alteration in Respiratory Function (new) : Alteration in Respiratory Function/new 05/10/2024 15:00 EST Alteration in Resp Status Related to Thoracic Surgery Goals & Outcomes, Respiratory Pt will maintain/resume baseline physical assessment, Pt will notdevelop complications r/t mechanical ventilation, Pt will maintain adequate nutritional intake, Pt will maintain/resume normal fluid/electrolyte balance, Pt will not develop complications r/t immobility, Pt will demonstrate proper technique w/self care procedures Interventions, Respiratory Assess for and report S&S of respiratory distress, Position for comfort & optimal oxygenation Goals/Interventions, Respiratory Yes Respiratory, Problem Start 05/09/2024 17:42 Reviewed Plan with, Respiratory Patient Patient Progression, Respiratory Patient progressing according to plan . Nursing Data Cardiac Data. : Cardiac Data. 05/10/2024 9:00 EST Cardiovascular Symptoms None Nail Bed Color, Fingers [place] Nail Bed Color, Toes [place] Skin Temperature Upper Extremities Warm, Dry Skin Temperature Lower Extremities Warm, Dry Heart Sounds S1, S2 Heart Rhythm Regular Pacemaker No Cardiac Rhythm Normal sinus rhythm, Sinus tachycardia Capillary Refill < 3 seconds Radial Pulse, Left Normal Radial Pulse, Right Normal Dorsalis Pedis Pulse, Left Normal Dorsalis Pedis Pulse, Right Normal Femstop No Periorbital, left None Periorbital, right None Edema, Left Arm None Edema, Right Arm None Hand, left None Hand, right None Edema, sacral None Edema, Left Pretibial None Edema, Right Pretibial None Ankle, left None Ankle, right None Pedal, left None Pedal, right None patient monitor Yes AV fistula No Cardiovascular WNL except . Neurological Data. : Neurological Data. 05/10/2024 9:00 EST Tongue Disposition Midline Neurological Symptoms None Level of Consciousness Full Consciousness Orientated to person, place, time Person, Place, Time, Event Hallucinations None Facial Symmetry Intact Characteristics of Speech Clear and normal Pupil description, left Regular Pupil description, right Regular Pupil reaction, left Brisk Pupil reaction, right Brisk Strength LUE 5-Active movement against gravity & full resistance Strength RUE 5-Active movement against gravity & full resistance Strength LLE 5-Active movement against gravity & full resistance Strength RLE 5-Active movement against gravity & full resistance Tone LUE Normal Tone RUE Normal Tone LLE Normal Tone RLE Normal Movement LUE Spontaneous Movement RUE Spontaneous Movement LLE Spontaneous Movement RLE Spontaneous Gait No disturbance Response Eye Opening Spontaneously Motor Response-Adult Obeys commands Verbal Response-Adult Oriented and converses Shabnam Coma Score 15 1 - 10 Pain Scale Score 4 Pain Interventions Pharmacological, Repositioning, Abdominal splinting Neuro WNL except Eyes and Movements Conjugate gaze: Move in same direction at same speed Memory Intact Swallow - Neuro Normal . Respiratory/Pulmonary Data. : Respiratory/Pulmonary Data. 05/10/2024 9:00 EST Respiratory Symptoms None Respiratory effort Unlabored Chest expansion Symmetrical Accessory Muscles use No Patient participation Cooperative Upper Airway Clear Cough No cough Left Upper Lobe Breath Sounds Clear Right Upper Lobe Breath Sounds Clear Right Middle Lobe Breath Sounds Clear Left Lower Lobe Breath Sounds Clear Right Lower Lobe Breath Sounds Clear Respiratory distress None Respiratory Treatment(s) Cough and deep breathe, Incentive spirometry Tracheostomy/tracheal device present No Respiratory WNL except . Vital Signs : VITAL SIGNS SECTION 05/10/2024 10:00 EST Temperature 99.7 DegF Temperature Route Oral Pulse Rate 138 bpm H Systolic Blood Pressure 115 mm Hg Diastolic Blood Pressure 66 mm Hg Blood pressure sites Arm, left Pulse Pressure 49 mm Hg Oxygen Saturation 97 % Mode of Delivery (Oxygen) Room air . Evaluation pt IMC on tele, NSR but tachy in low 100's, up to 130's when standing/moving. palpable pulses, no edema present. a&o x4, standby d/t tachy when moving, otherwise independent. on RA, clear lung sounds. pt tolerating regular diet, staying hydrated. using the commode frequently for urination, CYU.2 lap sites bilaterally on chest/under breast. both clean dry and intact, surgical glue and steri strips. educated pt about sternal precautions, meds and exercises to do at home during discharge, pt understood. valuables and belongings all together leaving with patient. . * Francesco Gentile DO: PERFORM Event Display: Progress Note Hospital Authored Date: Patient: ??VESTA HANNAH ? Age:??38 Years?Sex:??Female?:??1985?? Subjective Vesta is postop day 1 from Juan A procedure.?? Postoperatively patient had a run of SVT which responded to 6 mg of adenosine.?? Her pain was initially managed with a ketamine drip postoperatively, however this was discontinued following episode of SVT. ?? This morning she states that her pain is well-controlled and she has ambulated down the hallway to x-ray this morning without issue.?? She is on room air Review of Systems No nausea, vomiting, or chills.?? Patient denies heart palpitations although heart rate remains 120???130s.?? She states her pain is well-controlled Physical Exam Vitals & Measurements T:??99.7?F?? HR:??138??(Peripheral)?? RR:??30?? BP:??115/66?? BP:??132/73(Line)?? SpO2:??97%?? HT:??170??cm?? WT:??55.7??kg?? BMI:??19.27?? Gen: No acute distress Neuro: Moves all extremities Head: Normocephalic, atraumatic Cardiac: RRR Resp: Non-labored breathing, no accessory muscle use, no subcostal retractions or grunting. On roomair Abdomen: Soft, non-distended, nontender Skin: incisions are clean, dry and intact?? Assessment/Plan Assessment:??Patient is postop day 1 from Juan A procedure.??Pediatric surgery assisted with the caseyesterday. ?? Postoperatively patient had a run of SVT which responded to adenosine.??Her pain was initially controlled with ketamine infusion however this was discontinued following run of SVT. ?? Today patient's pain is well-controlled.??Her heart rate remains 120s???130s.??She has ambulated tox-ray down the hallway without issues.??Her AP and lateral views on x-ray shows stable bar positionwithout pneumothorax.??She remains on room air.??Her incisions are clean dry and intact. ?? Recommendations: Oral pain regiment Ambulation Remainder of care per primary thoracic surgery team Pediatric surgery signing off ?? Discharge Planning:? Intake and Output Intake and Output Results?? This visit (24 hour periods starting at 07:00 EST)? 05/10/24 *?? 05/09/24?? 05/08/24?? Total Summary?Intake mL?? 400?? 2,200?? --?Output mL?? 1,000?? --?? --?Fluid Balance ?? -600?? 2,200?? --?? Intake (3)?Acetaminophen mL?? --?? 200?? --?Sodium Chloride 0.9% 1,000 mL mL?? 400?? 1,500?? --?Sodium Chloride 0.9% 500 mL mL?? --?? 500?? --?Total?? 400?? 2,200?? --?? Output (1)?Urine Voided mL?? 1,000?? --?? --?Total?? 1,000?? --?? --?? Counts (3)?Bladder Scan Volume mL?? --?? 337?? --?Urine Count ?? 2?? 2?? --?Urine Voided mL?? 1,000?? --?? --? * This column has not completed the indicated time period.?? Labs Last 24 Hours BLOOD COUNT & DIFF ? Event Name?? Event Result?? Date/Time?? WBC 11.3 k/mm3??High 05/10/24 02:21:00 RBC 3.54 m/mm3??Low 05/10/24 02:21:00 Hgb 10.6 Gm/dL??Low 05/10/24 02:21:00 Hct 32.1 %??Low 05/10/24 02:21:00 MCV 90.7 femtoliters 05/10/24 02:21:00 MCH 29.9 pg 05/10/24 02:21:00 MCHC 33 Gm/dL 05/10/24 02:21:00 Platelet Count 247 k/mm3 05/10/24 02:21:00 MPV 10.9 femtoliters 05/10/24 02:21:00 Nucleated RBC (Automated) 0 #/100 WBC'S 05/10/24 02:21:00 ? CHEM GENERAL ? Event Name?? Event Result?? Date/Time?? Sodium 136 mmol/L 05/10/24 02:21:00 Chloride 107 mmol/L 05/10/24 02:21:00 Bicarbonate Level 18 mmol/L??Low 05/10/24 02:21:00 Anion Gap 05/10/24 02:21:00 BUN 8 mg/dL 05/10/24 02:21:00 Creatinine-Blood 0.61 mg/dL 05/10/24 02:21:00 Calcium, Ionized pH Corrected 1.14 mmol/L 05/10/24 02:21:00 Phosphorus 2.8 mg/dL 05/10/24 02:21:00 Magnesium 1.7 mg/dL 05/10/24 02:21:00 ? * Gus MOSQUEDA, José Miguel Josue: PERFORM Event Display: Progress Note Hospital Authored Date: Surgical Attending - Patient seen and examined with residents/PA on rounds. ??Agree with the above.?? Patient seen at the bedside today. ??Patient is very happy with the??repair.?? SVT has been??controlled??currently??patient is on the monitor.?? She is ambulated without difficulty. ??She complainsof some chest tightness but no significant pain.?? Wounds are healing well without erythema.?? Planto convert to oral pain medications.?? Consider discharge home pending??cardiology input. José Miguel Weber MD ?? * Ferdinand Berman RN: PERFORM, SIGN, VERIFY Event Display: Progress Note Hospital Authored Date: Patient: VESTA HANNAH Age: 38 years Sex: Female : 1985 Associated Diagnoses: None Author: Ferdinand Berman RN Findings Problem Related to Alteration in Respiratory Function (new) : Alteration in Respiratory Function/new 05/09/2024 22:45 EST Alteration in Resp Status Related to Thoracic Surgery Goals & Outcomes, Respiratory Pt will maintain/resume baseline physical assessment, Pt will notdevelop complications r/t mechanical ventilation, Pt will maintain adequate nutritional intake, Pt will maintain/resume normal fluid/electrolyte balance, Pt will not develop complications r/t immobility, Pt will demonstrate proper technique w/self care procedures Interventions, Respiratory Assess/monitor tolerance to IV infusions; verify rate/dose, Assess for and report S&S of respiratory distress, Position for comfort & optimal oxygenation, Monitor sputum color & consistency. Report changes to MD, Teach/encourage use of incentive spirometer BH Goals/Interventions, Respiratory Yes Respiratory, Problem Start 05/09/2024 17:42 Reviewed Plan with, Respiratory Patient Patient Progression, Respiratory Patient progressing according to plan . Evaluation Patient alert and oriented x3, IMC on Tele running sinus tach. On room air with clear/dim lung sounds. Medicated with Compazine at the start of the shift for nausea/vomiting with good effect. Impulsive, jumping out the the bed, bed alarm on. He has lapsites with surgical glue.well approximated. Positive bowel sounds. Palpable pulses. Call barnett within reach. Bed in low position, wheels locked.. Consult note * Haris Bravo: PERFORM, MODIFY, MODIFY Event Display: Consultation Note Authored Date: [id number] Patient: ??VESTA HANNAH ? Age:??38 Years?Sex:??Female?:??1985?? Indication for Consult [facility] -Electrophysiology Consultation Note ?? Consult Requesting Physician: Dr Watson Consulting Telesales Team Leader: Dr Hurtado Primary Telesales Team Leader: Consult Reason:??SVT History of Present Illness/Interval History This is a 38 years old female past medical history of asthma, COPD, and pectus excavatum who initially presented to [facility] for elective procedure.?? She was getting off with statins,and when she was 19 years ago and underwent repair in 2004 at [facility] by Dr. Robertson.?? On 05/09/2024, patient underwent Juan A procedure with thoracic appendectomy and cryoablation by Dr. Weber.?? Postprocedure, patient had episode of tachycardia with a heart rate above 180 bpm.?? During that time,patient was sitting in bed and she was actively vomiting and endorsed feeling terrible.?? She reports after receiving ketamine she was feeling very dizzy, and seeing things.?? Eventually, she received 6 mg of adenosine and patient converted to sinus rhythm.?? She was started on metoprolol.?? EP wasconsulted due to new onset of SVT postprocedure.?? During my physical examination, patient was laying down in bed.?? Telemetry, rhythm was consistent with sinus tachycardia with a heart rate 130 during that time she denies any symptoms.?? Reports is normal for her. Review of Systems 12 point review of symptoms as noted in the??HPI and reviewed in detail with the patient; pertinentpositives noted otherwise??negative. Physical Exam Vitals & Measurements T:??99.7?F?? HR:??138??(Peripheral)?? RR:??30?? BP:??115/66?? BP:??132/73(Line)?? SpO2:??97%?? HT:??170??cm?? WT:??55.7??kg?? BMI:??19.27?? Weight lb/oz: 122 lb 13 oz Gen: well appearing, NAD HEENT: mmm, no oral exudates Neck: Normal JVD CV: rrr, no m/r/g Abd: soft, NT, ND Lungs/chest: normal breath sounds, no crackles or wheezes Extremities: no pitting edema, 2+ pulses Neuro: moving all 4 extremities spontaneously Skin: no rash Assessment/Plan 38 years old female past medical history of asthma, COPD, and pectus excavatum who initially presented to [facility] for elective procedure.?? She was getting off with statins, and when she was 19 years ago and underwent repair in 2004 at [facility] by Dr. Robertson.?? On 05/09/2024, patient underwent Juan A procedure with thoracic appendectomy and cryoablation by Dr. Weber.?? Postprocedure, patient had episode of tachycardia with a heart rate above 180 bpm.?? During that time, patient was sitting in bed and she was actively vomiting and endorsed feeling terrible.?? She reports after receiving ketamine she was feeling very dizzy, and seeing things.?? Eventually, she received 6 mg of adenosine and patient converted to sinus rhythm.?? She was started on metoprolol.?? EP was consulteddue to new onset of SVT post procedure ?? Plan: 1. SVT -I suspect this could have been related to??medication (ketamine).?? On telemetry, she remains??in sinus ??tachycardia. ??Consider??increasing metoprolol to 25 mg??daily.?? She can follow-up with theEP as outpatient. ??No further recommendation. ?? Thank you for allowing us to participate in the care of this patient. EP will sign off at this time. Please call if any questions/concerns or further services needed. ?? Patient seen and discussed with Dr. Hurtado. ?? Haris Alvarez PA-C Cardiac Electrophysiology ?? I personally spent a total of??60 minutes, including both [id number] and [id number]-[id number]-face time onthe date of the encounter, addressing the above diagnoses, and answering all questions.? Available by [employer].?? Please note that this document was generated with the assistance of??DRAGON?voice recognition technology, and may contain vocabulary/syntax errors.?Please do not hesitate to contact me in case of any questions or concerns? Allergies Cymbalta??(Diarrhea, Vomiting) amoxicillin??( rash and swelling ) Apples??( and difficult breathing , vomiting) Bananas??( and difficulty breathing , vomitting) Wellbutrin??( little seizures ) Home Medications Albuterol Budesonide-Formoterol: 2 puffs, Inhalation, 2 times a day Cyclobenzaprine: 10 mg = 1 tablet, By Mouth, 3 times a day tadalafil: 5 mg, By Mouth, Daily Hospital Medications Medications (16) Active SCHEDULED: (8) Albuterol/Ipratropium Inhalation Payal 3mL (Duoneb Inhalation Solution) ??1 vials, Neb, Every 6 hours Docusate Sodium 100 mg Capsule (Docusate Sodium Capsule) ??100 mg 1 capsule, By Mouth, 2 times a day Enoxaparin 40 mg Inj (Enoxaparin Inj) ??40 mg 0.4 mL, Subcutaneous Injection, Daily Gabapentin 300 mg Capsule (Gabapentin Capsule) ??300 mg, By Mouth, 3 times a day Metoprolol 25mg Tablet (metoprolol 25 mg oral tablet) ??12.5 mg, By Mouth, 2 times a day Remove Patch (Remove ??Patch) ??1 each, Topically, Every 72 hours Scopolamine 1 mg Patch ??1 mg 1 each, Topically, Every 72 hours Senna Tablet ??8.6 mg 1 tablet, By Mouth, 2 times a day CONTINUOUS: (1) NaCL 0.9% (1000 mL) Cont IV 1,000 mL (NaCL 0.9% 1,000 mL) ??1,000 mL, IV Infusion, 100 mL/hr PRN: (7) Bisacodyl 10 mg Suppository (Dulcolax Supp) ??10 mg 1 supp, Rectally, Once Diazepam 2 mg Tablet (Valium 2 mg oral tablet) ??2 mg, By Mouth, 3 times a day HYDROmorphone 0.5 mg/0.5 mL Inj Syringe (Dilaudid Inj) ??0.5 mg 0.5 mL, IV Push Slowly, Every 4 hours Ibuprofen 600 mg Tablet (ibuprofen 200 mg oral tablet) ??600 mg, By Mouth, 3 times a day Ondansetron 2mg/mL Inj (2mL Vial) (Zofran Inj) ??4 mg, IV Push, Every 6 hours OxyCODONE 5 mg IR Tablet (OxyCODONE IR Tablet) ??5 mg, By Mouth, Every 4 hours PROCHLORperazine 5mg/ml Inj (Compazine Inj) ??5 mg 1 mL, IV Push Slowly, Every 6 hours Lab Results Cardiology Labs WBC:??11.3 k/mm3??High (05/10/24) RBC:??3.54 m/mm3??Low (05/10/24) Hgb:??10.6 Gm/dL??Low (05/10/24) Hct:??32.1 %??Low (05/10/24) MCV: 90.7 femtoliters (05/10/24) MCH: 29.9 pg (05/10/24) MCHC: 33 Gm/dL (05/10/24) Platelet Count: 247 k/mm3 (05/10/24) RDW-SD:??47.5 femtoliters??High (05/10/24) Nucleated RBC (Automated): 0 #/100 WBC'S (05/10/24) Abs. Neut:??8.9 k/mm3??High (05/10/24) Abs. Lymph: 1.5 k/mm3 (05/10/24) Abs. [place]: 0.8 k/mm3 (05/10/24) Abs. Eo: 0 k/mm3 (05/10/24) Abs. Baso: 0 k/mm3 (05/10/24) Neut %:??78.8 %??High (05/10/24) [place] %: 7.1 % (05/10/24) Eos %: 0 % (05/10/24) Baso %: 0.1 % (05/10/24) Imm Gran: 0.5 % (05/10/24) Abs. Imm Gran: 0.1 k/mm3 (05/10/24) Sodium: 136 mmol/L (05/10/24) Potassium: 4 mmol/L (05/10/24) Chloride: 107 mmol/L (05/10/24) Bicarbonate Level:??18 mmol/L??Low (05/10/24) BUN: 8 mg/dL (05/10/24) Creatinine-Blood: 0.61 mg/dL (05/10/24) Diagnostic Impression ECG ECG 12-Lead ?? 14:51:13 Ventricular Rate: 183 BPM Atrial Rate: 183 BPM QRS Duration: 86 ms Q-T Interval: 228 ms QTC Calculation(Bazett): 397 ms R [place]: 83 degrees T [place]: -79 degrees Supraventricular tachycardia Marked ST abnormality, possible inferior subendocardial injury Abnormal ECG No previous ECGs available Confirmed by Cale Payton ([id number]) on 05/09/2024 3:17:42 PM ?? Ringold: Cale Payton ?? Signed By: Cale Payton MD ?? ECG 12-Lead ?? 14:51:13 Please click on pdf link to open report ?? Signed By: Cale Payton MD Problem List/Past Medical History Ongoing Pectus excavatum Procedure/Surgical History Teeth delivery x 2 Pectus excavatum Tonsillectomy Social History Alcohol Use: Current. Frequency: 1-2 times per year. Type: Wine. Employment/School Status: Disabled. Exercise Self assessment: Fair condition. Other: 1 or 2 times a week. Sexual Sexually involved in last 6 months: Yes. Sexual orientation: Heterosexual. Gender identity: Male. Substance Abuse Use: Current. Type: Marijuana. Tobacco Former smoker, Other: social smoker in her early 20s. Type: Cigarettes. Family History No family history recorded. Note * Cecille Hays RN: PERFORM Event Display: Discharge/Transfer Note Hospital Authored Date: [id number] Nursing Discharge Note Entered On: 05/10/2024 17:17 EST Performed On: 05/10/2024 17:16 EST by Cecille Hays RN Nursing Discharge Note 2 Discharge Time : 05/10/2024 16:30 EST Discharge Level of Care at Discharge : Home/Care Home/Foster Care Patient Left Unit Via : Ambulatory Patient Accompanied Off Unit with : Responsible adult DC Instructions Provided & Signed by Pt : Yes Patient Understands D/C Instructions : Yes Patient Instructions Discharge Signed : Yes Discharge Comments : pt understood education, discharge instructions and all valuables and belongings left w/ her. stopped at pharmacy for prescriptions, picked up by roommate. Did Pt have Specialty Bed or Wound Vac : No Cecille Hays RN - 05/10/2024 17:16 EST * Yvonne Wilcox NP: PERFORM, MODIFY, SIGN, VERIFY Event Display: Discharge/Transfer Note Hospital Authored Date: [id number] Patient: VESTA HANNAH Age: 38 years Sex: Female : 1985 Associated Diagnoses: None Author: Yvonne Wilcox NP Discharge Information Admission Date: 05/09/2024 Discharge Date 05/10/2024 Primary Care Provider: Zulma Squires MD Principal Discharge Diagnosis Pectus excavatum: Present on admission - yes. Medications MEDICATION LIST (Selected) Prescriptions Prescribed MiraLax oral powder for reconstitution: = 17 Gm, By Mouth, Daily, for 7 days, # 119 Gm, 0 Refills, Acute 05/17/24 11:42:00 EST, 05/10/24 11:42:00 EST, REC Powder, [facility], Partial fill upon patient request if the prescription is for a schedule II opioid drug., 17 Gm By Mout... Tylenol 325 mg oral tablet: 325 mg, 1, tablet, By Mouth, Every 8 hours, # 21 tablet, Refills 0, Tot. Refills 0, Soft Stop, 05/10/24 15:44:00 EST, Route to Pharmacy Electronically, [facility], Partial fill upon patient request if the prescription is for a schedule I... Valium 2 mg oral tablet: 2 mg, 1, tablet, By Mouth, 3 times a day, PRN, for 5 days, # 15 tablet, Refills 0, Tot. Refills 0, Acute 05/15/24 11:40:00 EST, Spasm, 05/10/24 11:40:00 EST, Route to Pharmacy Electronically, [facility] 3, Partial fill upon patient request... gabapentin 300 mg oral capsule: 300 mg, 1, capsule, By Mouth, 3 times a day, # 63 capsule, Refills 0, Tot. Refills 0, Maintenance, 05/10/24 11:39:00 EST, Route to Pharmacy Electronically, [facility] 3, Partial fill upon patient request if the prescription is for a schedu... ibuprofen 200 mg oral tablet: 600 mg, 3, tablet, By Mouth, 3 times a day, PRN, for 7 days, # 63 tablet, Refills 0, Tot. Refills 0, Acute 05/17/24 11:40:00 EST, Pain , Moderate, 05/10/24 11:40:00 EST,Route to Pharmacy Electronically, [facility] 3, Partial fill upon pat... metoprolol 25 mg oral tablet: 25 mg, 1, tablet, By Mouth, 2 times a day, # 60 tablet, Refills 0, Tot. Refills 0, Maintenance, 05/10/24 15:42:00 EST, Route to Pharmacy Electronically, [facility] 3, Partial fill upon patient request if the prescription is for a schedule... oxyCODONE 5 mg oral tablet: 5 mg, 1, tablet, By Mouth, Every 4 hours, PRN, for 7 days, # 42 tablet,Refills 0, Tot. Refills 0, Acute 05/17/24 11:40:00 EST, Pain , Moderate, 05/10/24 11:40:00 EST, Route to Pharm[facility], [facility], Partial fill upon patie... Documented Medications Documented Symbicort 160mcg/4.5mcg Inhaler: 2, puffs, Inhalation, 2 times a day, Refills 0, Maintenance, 08/26/23 13:27:00 EST albuterol inhaler (OP): 0 Refills, Maintenance cyclobenzaprine 10 mg oral tablet: 10 mg, 1, tablet, By Mouth, Daily at bedtime, Refills 0, Maintenance, 08/26/23 13:27:00 EST, Partial fill upon patient request if the prescription is for a scheduleII opioid drug. tadalafil: = 5 mg, By Mouth, Daily, 0 Refills, Maintenance, 05/09/24 5:47:00 EST, Partial fill uponpatient request if the prescription is for a schedule II opioid drug.. Aware of diagnosis: patient. Procedures DATE: 05/09/2024 PREOPERATIVE DIAGNOSIS: Recurrent pectus excavatum after Ravitch procedure POSTOPERATIVE DIAGNOSIS: Same PROCEDURE: Redo bilateral thoracoscopy with Juan A procedure with cryoablation of bilateral intercostal nerves 3-7 SURGEON: Colleen Barclay M.D. . Discharge condition: good Code status: Full Hospital Course Hospital course Ms. Hannah is a 38yo woman with a history asthma and a modified Ravitch procedure performed many years ago at [facility] to correct her pectus excavatum. Unfortunately she has a recurrent deformity for which she is symptomatic with shortness of breath, exercise intolerance, and pressure when laying down.She is now s/p Re-do Juan A bar procedure with Dr Barclay. Immediately post op, she was on a Ketamine gtt for pain per anesthesia orders. She began to have hallucinations on the Ketamine so it was discontinued. After discontinuing the Ketamine, she was notedto be in SVT with heart rate in the 190's refractory to Valsalva maneuver and Metoprolol. She was give IV Adenosine which improved her HR but still continued to be in the 110-140 range overnight. Cardiology was consulted and recommended Metoprolol 25mg BID and follow up in 4- 6 weeks with EP. She was discharged home on POD #1. Upon discharge, she was tolerating a regular diet, ambulating, voiding, and pain was controlled with PO pain medication. At the time of discharge, she was alert andoriented x3. VENCES. Head normocephalic, atraumatic. Neck supple, no lymphadenopathy. Lungs CTA. RRR, no M/G/R. Abdomen soft, NT/ND. +BS. Good CMS. No peripheral edema. Incisions with glue JASON, no erythema, edema, or drainage. She was discharged with new prescriptions for Oxycodone, Tylenol, Ibuprofen, Gabapentin, Valium, Metoprolol, and Miralax. She should only take the medication on the list provided at the time of discharge. Significant Results Results: Vital signs : VITAL SIGNS SECTION 05/10/2024 10:00 EST Temperature 99.7 DegF Temperature Route Oral Pulse Rate 138 bpm H Systolic Blood Pressure 115 mm Hg Diastolic Blood Pressure 66 mm Hg Blood pressure sites Arm, left Pulse Pressure 49 mm Hg Oxygen Saturation 97 % Mode of Delivery (Oxygen) Room air , Laboratory : LABORATORY 05/10/2024 4:17 EST Est Creatinine Clearance 109.95 mL/min 05/10/2024 2:21 EST WBC 11.3 k/mm3 H RBC 3.54 m/mm3 L Hgb 10.6 Gm/dL L Hct 32.1 % L MCV 90.7 femtoliters MCH 29.9 pg MCHC 33.0 Gm/dL Platelet Count 247 k/mm3 RDW-SD 47.5 femtoliters H MPV 10.9 femtoliters Nucleated RBC (Automated) 0.0 #/100 WBC'S Abs. NRBC 0.0 k/mm3 Abs. Neut 8.9 k/mm3 H Abs. Lymph 1.5 k/mm3 Abs. [place] 0.8 k/mm3 Abs. Eo 0.0 k/mm3 Abs. Baso 0.0 k/mm3 Neut % 78.8 % H Lymph % 13.5 % L [place] % 7.1 % Eos % 0.0 % Baso % 0.1 % Imm Gran 0.5 % Abs. Imm Gran 0.1 k/mm3 Sodium 136 mmol/L Potassium 4.0 mmol/L Chloride 107 mmol/L Bicarbonate Level 18 mmol/L L Anion Gap 11 BUN 8 mg/dL Creatinine-Blood 0.61 mg/dL Estimated GFR Creatinine 117 ML/MIN/1.73 M2 Calcium, Ionized pH Corrected 1.14 mmol/L Phosphorus 2.8 mg/dL Magnesium 1.7 mg/dL . Discharge Plan Diet/Activity/Patient Education/Follow Up Follow Up with: Colleen Barclay 05/24/2024 10:00 AM Please have a chest xray in the [facility] Department 3rd floor at 9:00AM then follow up with Dr Barclay in the Medical Office Building [address] at 10:00AM.; Deshawn Hurtado Within 4 to 5 weeks Please call to schedule follow up with Cardiology . Discharge Disposition Discharge: home. Prescription Given this visit:Prescriptions Acetaminophen (Tylenol 325 mg oral tablet) 1 tablet = 325 mg, By Mouth, Every 8 hours, # 21 tablet, 0 Refills, [place] [address] [id number] Next Dose: Diazepam (Valium 2 mg oral tablet) 1 tablet = 2 mg, By Mouth, 3 times a day, # 15 tablet, 0 Refills, [place] [address] [id number] Next Dose: Gabapentin (gabapentin 300 mg oral capsule) 1 capsule = 300 mg, By Mouth, 3 times a day, # 63 capsule, 0 Refills, [place] [address] [id number] Next Dose: Ibuprofen (ibuprofen 200 mg oral tablet) 3 tablet = 600 mg, By Mouth, 3 times a day, # 63 tablet, 0 Refills, [place] [address] [id number] Next Dose: Metoprolol (metoprolol 25 mg oral tablet) 1 tablet = 25 mg, By Mouth, 2 times a day, # 60 tablet, 0 Refills, [address] [address] [id number] Next Dose: Oxycodone (oxyCODONE 5 mg oral tablet) 1 tablet = 5 mg, By Mouth, Every 4 hours, # 42 tablet, 0 Refills, [place] [address] [id number] Next Dose: Polyethylene Glycol 3350 (MiraLax oral powder for reconstitution) 17 Gm, By Mouth, Daily, # 119 Gm, 0 Refills, [place] [address] [phone] Next Dose: Patient Instructions Given:No qualifying data available Education Given:Status4 Patient Education - Thoracic Post Thoracoscopy Patient Follow-up:Added Follow Up Time Frame Comments Deshawn Hurtado 4 to 5 weeks Please call to schedule follow up with Cardiology Colleen Barclay 05/24/2024 10:00 Please have a chest xray in the [facility] Department 3rd floor at 9:00AM then follow up with Dr Barclay in the Medical Office Building [address] at 10:00AM. * Cecille Hays RN: PERFORM Event Display: Patient Education/Instruction Authored Date: [id number] Inpatient Adult Discharge Instructions. [address] [address] Name: VESTA HANNAH : 1985?? Visit: 05/09/2024 05:25?? Current Date: 05/10/2024 15:53 ?? Account: [id number]?? Inpatient Adult Discharge Instructions We would like to thank you for allowing us to assist you with your healthcare needs. The following includes patient education materials and information regarding your injury/illness. Our entire staffstrives to provide an excellent experience for our patients and their families. PLEASE ENSURE YOU FOLLOW-UP PER THE INSTRUCTIONS BELOW! ?? YOUR OPINION IS IMPORTANT TO US! Please complete the survey you may receive by mail or email. Your feedback will be used to make improvements to the healthcare experiences of our patients and their families. Surveys are administered by [employer] ?? If further treatment with your primary care physician or another doctor is recommended, it is important for you to keep the appointment. Call your primary care physician or return to the Emergency Department immediately if your condition worsens, fails to improve, or new symptoms develop. If you need to find a doctor, you can call [facility] for a referral at [phone] or toll free at [phone]) or log in to [email or web address].. ?? [facility], in keeping with [facility] guidance, no longer requires face masks for staff, patientsor visitors in most situations. Similiar to time spent indoors at other locations, there is the chance that you were exposed to repiratory viruses during your time with us (such as flu or COVID-19). If you develop symptoms concerning for a viral respiratory infection, please seek testing (and treatment if indicated) from your medical provider or home test kit. ?? You can view and manage your care through the patient portal or by using a health care ho of your choosing. [email or web address] is a website that allows you to securely view your medical information including your hospital discharge summary, office visit summaries, medications and follow-up visits. You can also request appointments, renew medications, and request access to your medical information using a health care ho of your choosing, or just ask a question. You can enroll at [email or web address] or register during your next office visit. You have been discharged from [facility], Patient Care Unit: SW5??. If you have any questions regarding these instructions, including results of studies pending, afteryou leave, please call us and we will be happy to assist you 19/01. [facility] Your Care Team Attending Physician Ning MOSQUEDA, Colleen Josue?? Consulting Providers Colleen Barclay MD?? Discharging Providers Brenden PAUL, Yvonne Lujan Your Diagnosis Pectus excavatum Pectus excavatum Tests Performed Below is a partial list of the tests performed during your hospitalization. You may have had other tests and procedures not included in this list. Please discuss all test results with your provider. ABG POC CARTRIDGE BASE EXCESS POC CARTRIDGE BUN Calcium Ionized CALCIUM IONIZED POC CART CBC w/ Differential Creatinine GLUCOSE POC CARTRIDGE HEMATOCRIT POC CARTRIDGE HEMOGLOBIN POC CARTRIDGE Lytes Magnesium Level Phosphorus Level POTASSIUM POC CARTRIDGE SODIUM POC CARTRIDGE Type and Screen XR Chest 2 Views Frontal and Lat?-- Results Pending -- XR Chest Portable * ABG (Lab) POC Cartridge (ABG POC CARTRIDGE)?? BUN?? Base Excess (Lab) POC Cartridge (BASE EXCESS POC CARTRIDGE)?? CBC?? CBC w/ Differential?? COVID-19 (2019 Novel Coronavirus) PCR?? Creatinine?? Electrolytes (Lytes)?? Glucose (Lab) POC Cartridge (GLUCOSE POC CARTRIDGE)?? Hematocrit (Lab) POC Cartridge (HEMATOCRIT POC CARTRIDGE)?? Hemoglobin (Lab) POC Cartridge (HEMOGLOBIN POC CARTRIDGE)?? Ionized Calcium (Calcium Ionized)?? Ionized Calcium(POC) POC Cartridge (CALCIUM IONIZED POC CART)?? Magnesium Level?? Phosphorus Level?? Potassium (Lab) POC Cartridge (POTASSIUM POC CARTRIDGE)?? RBCs on Hold?? Sodium (Lab) POC Cartridge (SODIUM POC CARTRIDGE)?? Type and Screen?? Chest 2 Views Frontal and Lat (XR Chest 2 Views Frontal and Lat)?? Chest Portable (XR Chest Portable *)?? Primary Care Provider Rios Love MD , Karely? Advance Directive Health Care Proxy on File No Patient refuses to discuss Discharge Vitals Temperature: 99.7 DegF Height: 170 cm Pulse Rate:??138 bpm??High Weight: 55.7 kg Respiratory Rate: 17 br/min Body Mass Index: 19.27 kg/m2 Systolic Blood Pressure: 122 mm Hg Body surface area: 1.62 Diastolic Blood Pressure: 76 mm Hg ?? Oxygen Saturation: 98 % ?? Studies Pending All studies ordered during this hospital stay have been completed unless listed below. Please discuss all pending results with your provider listed above in these instructions. ?? CBC?? COVID-19 (2019 Novel Coronavirus) PCR?? RBCs on Hold?? Chest 2 Views Frontal and Lat (XR Chest 2 Views Frontal and Lat)?? What to do next Instructions From Your Doctor ?? Orders? 05/10/24 15:48:00 EST?? Scheduled Follow-Up Appointments Thursday 10:00 AM EST ?? With: Alem PAUL, Zaida Cook Where: [facility] [address] [place] [address] [address] [place] [address]- Status: Pending Thursday 10:00 AM EST ?? With: Jamir PAUL, Luz Maria Herndon Where: [address] [place] [address]- Status: Pending You Need to Schedule the Following Appointments Follow Up with??Colleen Barclay When:??05/24/2024 10:00 AM EST Why: Please have a chest xray in the [facility] Department 3rd floor at 9:00AM then follow up with Dr Barclay in the Medical Office Building [address] at 10:00AM. Where: [address] [place] [address] [address] [facility] [place] [place] [address]- Business (1) Follow Up with??Deshawn Hurtado When:??Within 4 to 5 weeks Why: Please call to schedule follow up with Cardiology Where: [facility] [place] [id number] [facility] (1) Discharge Medications VESTA HANNAH :1985 Visit Date:05/09/2024 Medications: Please continue your medications until treatment is completed or stopped by your provider. Medications not listed below should be discontinued. Discuss any questions related to medications with your provider. What How Much When Why Instructions Next Dose New Acetaminophen (Tylenol 325 mg oral tablet) 1 tab(s) Oral Every 8 hours Duration: 7 Days Pickup at [place] [address] 05/10 9 PM New Diazepam (Valium 2 mg oral tablet) 1 tab(s) Oral 3 times a day as needed for Spasm Duration: 5 Days Pickup at [place] [address] as needed New Gabapentin (gabapentin 300 mg oral capsule) 1 capsule Oral 3 times a day Pectus excavatum Duration: 21 Days Pickup at [place] [address] 05/10 9 PM New Ibuprofen (ibuprofen 200 mg oral tablet) 3 tab(s) Oral 3 times a day as needed for Pain , Moderate Duration: 7 Days Pickup at [place] [address] as needed New Metoprolol (metoprolol 25 mg oral tablet) 1 tab(s) Oral Twice a day Pickup at [place] [address] 05/10 9 PM New Oxycodone (oxyCODONE 5 mg oral tablet) 1 tab(s) Oral Every 4 hours as needed for Pain , Moderate Pectus excavatum Duration: 7 Days Pickup at [place] [address] as needed New Polyethylene Glycol 3350 (MiraLax oral powder for reconstitution) 17 gram Oral Daily Duration: 7 Days Pickup at [place] [address] 05/11 9 AM Unchanged Albuterol (albuterol inhaler (OP)) Unchanged Budesonide-Formoterol (Symbicort 160mcg/ 4.5mcg Inhaler) 2 puff(s) Inhalation Twice a day Unchanged Cyclobenzaprine (cyclobenzaprine 10 mg oral tablet) 1 tab(s) Oral Daily at Bedtime 05/10 9 PM Unchanged tadalafil 5 Milligram Oral Daily Pharmacy Information [place] [address]: [address] [place] [address] [phone] Prescription Given During Visit Acetaminophen (Tylenol 325 mg oral tablet) - 1 tablet = 325 mg, By Mouth, Every 8 hours, # 21 tablet, 0 Refills, [place] [address] [phone]?? Diazepam (Valium 2 mg oral tablet) - 1 tablet = 2 mg, By Mouth, 3 times a day, # 15 tablet, 0 Refills, [place] [address] [id number]?? Gabapentin (gabapentin 300 mg oral capsule) - 1 capsule = 300 mg, By Mouth, 3 times a day, # 63 capsule, 0 Refills, [place] [address] [id number]?? Ibuprofen (ibuprofen 200 mg oral tablet) - 3 tablet = 600 mg, By Mouth, 3 times a day, # 63 tablet,0 Refills, [place] [address] [id number]?? Metoprolol (metoprolol 25 mg oral tablet) - 1 tablet = 25 mg, By Mouth, 2 times a day, # 60 tablet,0 Refills, [place] [address] [id number]?? Oxycodone (oxyCODONE 5 mg oral tablet) - 1 tablet = 5 mg, By Mouth, Every 4 hours, # 42 tablet, 0 Refills, [place] [address] [id number]?? Polyethylene Glycol 3350 (MiraLax oral powder for reconstitution) - 17 Gm, By Mouth, Daily, # 119 Gm, 0 Refills, [place] [address] [id number]?? Laboratory Results Below is a partial list of the most recent Laboratory test results done prior to this discharge. You may have had other tests and procedures not included in this list. Please discuss all test resultswith your provider. Est Creatinine Clearance - 109.95 mL/min (05/10/2024) RBC Available - RE (05/09/2024) RBC Unit ID - [id number] (05/09/2024) ABG POC CARTRIDGE (05/09/2024) ???pH (POC) POC Cartridge - 7.36???pCO2 (POC) POC Cartridge - 32.4 mm Hg???pO2 (POC) POC Cartridge - 263 mm Hg???Estimated Bicarbonate (POC) POC Cart - 18.2 mmol/L???% O2 Sat Arterial (POC) POC Cartridge - 100 %???Specimen Type - Blood Gas - ARTERIAL BASE EXCESS POC CARTRIDGE (05/09/2024) ???Base Excess (POC) POC Cartridge - NEGATIVE 7 BUN (05/10/2024) ???BUN - 8 mg/dL Calcium Ionized (05/10/2024) ???Calcium, Ionized pH Corrected - 1.14 mmol/L CALCIUM IONIZED POC CART (05/09/2024) ???Ionized Calcium (POC) POC Cartridge - 1.18 mmol/L CBC w/ Differential (05/10/2024) ???WBC - 11.3 k/mm3???RBC - 3.54 m/mm3???Hgb - 10.6 Gm/dL???Hct - 32.1 %???MCV - 90.7 femtoliters???MCH - 29.9 pg???MCHC - 33.0 Gm/dL???Platelet Count - 247 k/mm3???RDW-SD - 47.5 femtoliters???MPV - 10.9 femtoliters???Nucleated RBC (Automated) - 0.0 #/100 WBC'S???Abs. NRBC - 0.0 k/mm3???Abs. Neut -8.9 k/mm3???Abs. Lymph - 1.5 k/mm3???Abs. [place] - 0.8 k/mm3???Abs. Eo - 0.0 k/mm3???Abs. Baso - 0.0 k/mm3???Neut % - 78.8 %???Lymph % - 13.5 %???[place] % - 7.1 %???Eos % - 0.0 %???Baso % - 0.1 %???Imm Gran - 0.5 %???Abs. Imm Gran - 0.1 k/mm3 Creatinine (05/10/2024) ???Creatinine-Blood - 0.61 mg/dL???Estimated GFR Creatinine - 117 ML/MIN/1.73 M2 GLUCOSE POC CARTRIDGE (05/09/2024) ???Glucose (POC) POC Cartridge - 103 HEMATOCRIT POC CARTRIDGE (05/09/2024) ???Hematocrit (POC) POC Cartridge - 30 % HEMOGLOBIN POC CARTRIDGE (05/09/2024) ???Hemoglobin (POC) POC Cartridge - 10.2 Gm/dL Lytes (05/10/2024) ???Sodium - 136 mmol/L???Potassium - 4.0 mmol/L???Chloride - 107 mmol/L???Bicarbonate Level - 18 mmol/L???Anion Gap - 11 Magnesium Level (05/10/2024) ???Magnesium - 1.7 mg/dL Phosphorus Level (05/10/2024) ???Phosphorus - 2.8 mg/dL POTASSIUM POC CARTRIDGE (05/09/2024) ???Potassium (POC) POC Cartridge - 3.3 mmol/L SODIUM POC CARTRIDGE (05/09/2024) ???Sodium (POC) POC Cartridge - 140 mmol/L Type and Screen (05/09/2024) ???Blood Type - A Positive???Antibody Screen - Negative You will be contacted within 72 hours with your results. Allergies (NKA means No Known Allergies) Cymbalta??(Diarrhea, Vomiting) amoxicillin??( rash and swelling ) Apples??( and difficult breathing , vomiting) Bananas??( and difficulty breathing , vomitting) Wellbutrin??( little seizures ) Problems Active Problems??(1) Pectus excavatum?? Education Materials Below is the list of Educational Leaflet Providered with your Discharge Instructions. WebMD Ignite Patient Education - Thoracic Post Thoracoscopy?? Valuables and Belongings I fully understand and agree that [facility] accepts no responsibility for all my personal property including clothing, toilet articles, radios, jewelry, dentures, hearing aids, rings, money, or any other property that is in my possession or is brought to me after admission. I understand certain valuables may be placed in a hospital safe for a short period of time. I understand that the hospital is not liable for loss or damage due to accident, fire, or other natural occurrence while said property is in the safe. I accept full responsibility for any personal property that I keep with me, and will not hold the hospital responsible in case of loss or disappearance. I acknowledge that i have been encouraged to send valuables and belongings home. ?? Review of Valuable and Belonging List: With patient Possessions released to: to pacu Date for Pt to Sign Valuables/Belongings: 05/09/24 17:37:00 ?? Other Discharge Information ? Pulmonary Rehab Status?? Pulmonary Rehab Discharge Status?? Respiratory Rate: 17 br/min ? Common Emergency Awareness Tips IS IT A STROKE? Act FAST and Check for these signs: FACE Does the face look uneven? ARM Does one arm drift down? SPEECH Does their speech sound strange? TIME Call at any sign of stroke ?? Heart Attack Signs Chest discomfort: Most heart attacks involve discomfort in the center of the chest and lasts more than a few minutes, or goes away and comes back. It can feel like uncomfortable pressure, squeezing, fullness or pain. Discomfort in upper body: Symptoms can include pain or discomfort in one or both arms, back, neck, jaw or stomach. Shortness of breath: With or without discomfort. Other signs: Breaking out in a cold sweat, nausea, or lightheaded. Remember, MINUTES DO MATTER. If you experience any of these heart attack warning signs, call to get immediate medical attention! ?? Smoking can increase your chances of developing chronic health problems and can cause harmful effects to other family members in your house. If you smoke, you are strongly encouraged to quit. Please call [facility] Link at [phone] or [phone] ([phone]) or log in to [email or web address] for referrals to smoking cessation programs. ?? 193 Suicide & Crisis Lifeline is available 19/01 if you or someone you know needs to find a reason to keep living. By calling 294 you'll be connected to a skilled, trained counselor at a crisis center in your area. INPATIENT DISCHARGE INSTRUCTIONS SIGNATURE PAGE VESTA HANNAH Location:[facility] Registration Date and Time:05/09/2024 05:25 EST Primary Care Physician: Rios Love MD , Karely, Attending Physician: Colleen Barclay MD, I VESTA HANNAH, have received the above patient education materials/instructions and have verbalized understanding. If ambulance or transport services are being used I further acknowledge being given a choice of service. ?? If you need to contact me, please call me at this number: . Patient/Technician'S Helper Name: Patient/Technician'S Helper Signature: Relationship to Patient: Witness Name/Signature: Date: * Yvonne Wilcox NP: SIGN, PERFORM, SIGN, VERIFY Event Display: Patient Education Handout Authored Date: [id number] * Yvonne Wilcox NP: PERFORM Event Display: Patient Education Leaflets Authored Date: [id number] Thoracic Post Thoracoscopy ?? 309 Post-Thoracoscopy/Thoractomy Discharge Instructions General Care Pain Management ??? Please stay ahead of your pain.? Take prescribed pain medication EVERY 4-6 hours for the first 24-48 hours at home.? Once pain sets in, it is difficult to play catch up and control yourpain.? Pain after surgery is expected & should improve daily. ? ? Stay on top of your paincontrol.? As mentioned above, once pain sets in, it can affect you many different ways???..such as your breathing, ambulation, appetite etc. ??? You will be able to function?? more and have morestamina if you get ahead of your pain ??? If taking more than one pain medication, alternate times so you are taking pain medications every couple of hours instead of all at once Showering/Bathing ??? SHOWER every day ??? Gently wash your incisions with an antibacterial soap.? NO BATHS until all of your incisions are completely healed (check with your surgeon). Activity ??? WALK every day. Strive to walk at least 30 minutes without stopping daily. ??? NO heavy lifting, pushing, or pulling (10 lbs maximum) for 1-2 weeks after discharge. ??? Do not drive any vehicle (car, truck, golf cart, tractor etc) ??? Continue to USE your incentive spirometer every 2-3 hours for 1 week after your hospital discharge. Exercise ??? Follow your exercise sheet as instructed (see attached). Call your surgeon if you have: ??? FEVER over 101.0 F ??? Increasing chest pain, change in pain, or shortness of breath. ??? Increasing redness, swelling, pain, or drainage from an incision. Common Questions Post-Procedure? At the ends of my incision, there is a string or redness/ irritation ??? In order to close the incision, surgeons use a dissolvable suture beneath the top layer of skin.? At times the ends of the string can appear before the incision heals. Continue to monitor.? If there is increasing redness, swelling, pain or drainage from the incision, please call the office. My bowels have been irregular since surgery, what do I do? Narcotic pain medication and anesthesia can cause constipation.Upon discharge a prescription for a stool-softener/laxative was prescribed. ??? Follow the directions and take the medicine twice daily for constipation, if needed.? If you did not receive this prescription or you have not moved your bowels within 3 days of discharge, please call the office. ? This information has been modified by your health care provider with permission from the publisher. ?? Patient Care team information Care Team Personnel Name: Flora Mo RN Position: [facility] RN Member Role: Primary Care Nurse Name: Chitra Roberts RN Position: [facility] RN Member Role: Primary Care Nurse Name: Ferdinand Berman RN Position: [facility] RN Member Role: Primary Care Nurse Name: Cecille Hays RN Position: [facility] RN Member Role: Primary Care Nurse Name: Rios Love MD , Zulma Lujan Position: Reference Physician Member Role: PCP Address: [address] [place] [address]- [place] Telecom: Name: Addis Whalen NP Position: [facility] Outreach Member Role: Lif[employer] Consulting Physician Address: [address] [place] [address]- [place] Telecom: Name: Cecille Krause Position: [facility] TA Member Role: Nursing Care Team Related Persons Name: MARY JO MASON
--- OUTSIDE RECORDS SUMMARY | 2024-06-09 02:41 | XMS_ITS | Continuity of Care Document ---
Author Organization [facility] Address [address] [place] [address] [address], [address] [place] [address]- Care Team Providers Care Manager Ems Name Role Phone Rios Love MD, Karely Primary Care Physician [phone] Encounter [facility] Date(s): 05/24/24 - 05/31/24 [facility] Surgery [address] [place] [address] Drive [address] [place] [address]- Attending Physician: Not on Staff, Attending MD Encounter Type: Office Visit Allergies, Adverse Reactions, Alerts Substance Criticality Severity [...] 11:39:00 AM EST, Route to Pharmacy Electronically, [facility], Partial fill upon patient request if the prescription is for a schedule II opioid drug., 170, cm, 05/09/24 17:58:00 EST, Height, 55.7, kg, 05/09/24 17:58:00 EST, Dry Weight Start Date: 05/10/24 Stop Date: 05/31/24 Status: Ordered Quantity: 63.0 Unit: capsule Repeat number: 1 Indication: Pectus excavatum metoprolol 25 mg oral tablet 25 mg, 1, tablet, By Mouth, 2 times a day, # 60 tablet, Refills 0, Tot. Refills 0, Maintenance, 05/10/24 3:42:00 PM EST, Route to Pharmacy Electronically, [facility], Partial fill upon patient request if the prescription is for a schedule II opioid drug., 170, cm, 05/09/24 17:58:00 EST, Height, 55.7, kg, 05/09/24 17:58:00 EST, Dry Weight Start Date: 05/10/24 Status: Ordered Quantity: 60.0 Unit: tablet Repeat number: 1 Symbicort 160mcg/4.5mcg Inhaler 2, puffs, Inhalation, 2 [...] 3:44:00 PM EST, Route to Pharmacy Electronically, [facility], Partial fill upon patient request if the prescription is for a schedule II opioid drug., 170, cm, 05/09/24 17:58:00 EST, Height, 55.7, kg, 05/09/24 17:58:00 EST, Dry Weight Start Date: 05/10/24 Stop Date: 05/17/24 Status: Ordered Quantity: 21.0 Unit: tablet Repeat number: 1 Problem List Condition Confirmation Course Effective Dates Status Health St atus Informant Pectus excsteventum Confirmed Active Vital Signs Most recent to oldest [Reference Range]: 1 Height 170 cm (05/24/24 10:07 AM) Weight 58.3 kg (05/24/24 10:07 AM) Oxygen Saturation [94-100 %] 98 % (05/24/24 10:07 AM) Pulse Rate [55-90 bpm] 101 bpm *H* (05/24/24 10:07 AM) Body Mass Index [18.5-24.99 kg/m2] 20.17 kg/m2 (05/24/24 10:07 AM) Blood Pressure [90-138/55-84 mm Hg] 108/ 74mm Hg (05/24/24 10:07 AM) Temperature [96.8-100.4 DegF] 97.8 DegF (05/24/24 10:07 AM) Mode of Delivery (Oxygen) Room air (05/24/24 10:07 AM) Blood pressure sites Arm, left (05/24/24 10:07 AM) Temperature Route Temporal (05/24/24 10:07 AM) Social History Social History Type Response Smoking Status Former smoker; Type: Cigarettes; Other: social smoker in her early 20s; entered on: 11/23/15 Sex Sex Representation Female (finding) Note * Rach Horvath: PERFORM Event Display: Patient Education/Instruction Authored Date: Ambulatory Adult Visit Summary [facility] Thor[facility] Surgery [address] [place] [address] Drive [facility] [address] [place] [address] Name: MINNIE HANNAH : 1985?? Visit: 05/24/2024 10:05?? Ambulatory Visit Instructions ?? Your Care Team Primary Care Provider Rios Love MD , Zulma Lujan? This Visit Provider Zaida Ferrara NP Vitals Signs Temperature: 97.8 DegF Height: 170 cm Pulse Rate:??101 bpm??High Weight: 58.3 kg Systolic Blood Pressure: 108 mm Hg Body Mass Index: 20.17 kg/m2 Diastolic Blood Pressure: 74 mm Hg Body surface area: 1.66 Oxygen Saturation: 98 % ?? What to do next Instructions From Your Provider [facility] [address] [place] [address] ?Dr. Colleen Barclay MD, FCCP, FACS? Dr. Lisa Fish MD, MPH, FACS? Dr. Pedro Adames, DO, FACS? Zaida Ferrara, MSN, FISH TRAPPER- ?? Office Phone #: [phone]? Office Fax #: [phone] ?? Additional Instructions: Your chest x-ray appears stable and you seem to be healing well. Your incisions??look??great, keep??them clean and dry??and avoid any antibiotic ointment.??You may resume physical therapy and normal activity 3 months after your surgery. There are no firm limitations on sexual activity but??avoid put ting strain on your chest or ribs. Please avoid drinking alcohol until you are no longer taking gabapentin or??oxycodone. We will plan on a follow up in 3 years but please feel free to call the office if you have any additional questions or concerns before then. Scheduled Follow-Up Appointments Thursday 10:00 AM EST ?? With: Jamir PAUL, Luz Maria Herndon Where: [place] [address]- Status: Pending 2024 3:15 PM EST ?? With: Deshawn Hurtado DO Where: [facility] [address] [place] [address]- Status: Pending Follow-Up Appointments Follow up Appointment - Ordered?-- 3 years, 05/24/24 10:55:00 EST Medications The list below reflects the information in our records and provided by you today along with any changes made during this visit. Please continue your medications until treatment is completed or stopped by your provider. If this is different from the information you have or there are other questions,please contact the prescribing provider. What How Much When Why Instructions Unchanged Acetaminophen (Tylenol 325 mg oral tablet) 1 tab(s) Oral Every 8 hours Duration: 7 Days Unchanged Albuterol (albuterol inhaler (OP)) Unchanged Budesonide-Formoterol (Symbicort 160mcg/ 4.5mcg Inhaler) 2 puff(s) Inhalation Twice a day Unchanged Cyclobenzaprine (cyclobenzaprine 10 mg oral tablet) 1 tab(s) Oral Daily at Bedtime Unchanged Gabapentin (gabapentin 300 mg oral capsule) 1 capsule Oral 3 times a day Pectus excavatum Duration: 21 Days Unchanged Metoprolol (metoprolol 25 mg oral tablet) 1 tab(s) Oral Twice a day Unchanged tadalafil 5 Milligram Oral Daily Medications and Immunizations Administered Medications Given During Visit No medications given during this visit.?? Allergies (NKA means No Known Allergies) Cymbalta??(Diarrhea, Vomiting) amoxicillin??( rash and swelling ) Apples??( and difficult breathing , vomiting) Bananas??( and difficulty breathing , vomitting) Wellbutrin??( little seizures ) Common Emergency Awareness Tips IS IT A [...] are strongly encouraged to quit. Please call [employer] Link at [phone] or [phone] ([phone]) or log in to [email or web address][email or web address] for referrals to smoking cessation programs. ?? The National Suicide Prevention Hotline is available 19/01 if you or someone you know needs to find a reason to keep living. By calling 4-700-792-talk (4705) you'll be connected to a skilled, trained counselor at a crisis center in your area. [facility] Health Portal You can view and manage your care through the patient portal or by using a health care ho of your choosing. [employer] is a website that allows you to securely view your medical information including your hospital discharge summary, office visit summaries, medications and follow-up visits. You can also request appointments, renew medications, and request access to your medical information using a health care ho of your choosing, or just ask a question. You can enroll at [email or web address] or register during your next office visit. [facility], in keeping with [facility] guidance, no longer requires face masks for [...] medical provider or home test kit. ?? Disclaimer: The information provided is of a general nature and is intended to be used in conjunction with the recommendations and advice of your health care practitioner. Every effort has been made to ensure that the information provided is accurate and complete at the time it is provided to you however, as your needs change, or, as new information becomes available, different or additional instructions may be required. ?? If you have questions, please consult with your primary care provider or pharmacist, as appropriate. This information is not intended to serve as substitution for assessment and evaluation by a qualified health care provider. If you do not have a primary care provider, you may find a [facility] provider by calling [facility] [employer] Link at [phone]. Patient Care team information Care Team Personnel Name: Flora Mo RN Position: S RN Member Role: Primary Care Nurse Name: Chitra Roberts RN Position: S RN Member Role: Primary Care Nurse Name: Ferdinand Berman RN Position: S RN Member Role: Primary Care Nurse Name: Cecille Hays RN Position: S RN Member Role: Primary Care Nurse Name: Zulma Squires MD Position: Reference Physician Member Role: PCP Address: [address] [place] [address] [address] [place], [place] [address] Telecom: Name: Addis Whalen NP Position: S Outreach Member Role: Lifetime Consulting Physician Address: [address] [place], [place] - [place] Tele[employer]: Care Team Related Persons Name: MARY JO MASON Insurance Providers Guarantor name: MINNIE CROUSE [employer] Plan Information #: 1 Payer: [employer] Member Number: [id number] Policy Number: NA Group Number: NA Health Plan Information #: 2 Payer: [employer] Member Number: [id number] Policy Number: NA Group Number: NA Health Plan Information #: 3 Payer: [facility] Member Number: NA Policy Number: NA Group Number: NA
== END 2024-06-08 14:43 | disposition home or self-care (01) ==
PROVIDERS: PCP Internal Medicine; Visit Provider Nurse Practitioner Family
DX: J44.9 Chronic obstructive pulmonary disease, unspecified (principal); Q67.6 Pectus excavatum; R00.0 Tachycardia, unspecified
CPT/HCPCS: 99214

== ENCOUNTER → 2024-06-08 14:03 | Outpatient (REF) | payer OTHER, SELFPAY ==
--- NOTE | 2024-06-08 15:21 | ECG_ITS ---
Test Reason : R00.0 - Tachycardia, unspecified Blood Pressure : / mmHG Vent. Rate : 096 BPM Atrial Rate : 096 BPM P-R Int : 134 ms QRS Dur : 082 ms QT Int : 334 ms P-R-T Axes : 075 090 073 degrees QTc Int : 421 ms Normal sinus rhythm Rightward axis Possible Anterior infarct (cited on or before 05-FEB-2023) Abnormal ECG When compared with ECG of 18-JUN-2023 11:51, Premature supraventricular complexes are no longer Present Nonspecific T wave abnormality has replaced inverted T waves in Anterior leads Referred By: Addis Whalen Electronically Signed By:CARLITOS LYNCH MD
--- OUTSIDE RECORDS SUMMARY | 2024-06-09 03:01 | XMS_ITS | Continuity of Care Document ---
Author Organization [facility] vices Address [address] [place] [address] Phone Care Team Providers Care Colorer Name Role Phone Unavailable Unavailable Unavailable Advance Directives Directive Yes / No Effective Date File Name No Information Encounters Encounter Description Practice Location Reason(s) For Visit Diagnoses Date Provider Providers Copied on Encounter [facility], [address] [place] [address], [facility], tel:[phone] Conversion No Information 2 No Information [facility], [address] [place] [address], [facility], tel:[phone] Conversion IRRITABLE BOWEL SYNDROMECHRONIC MAJOR DEPRESSIONCYSTI TIS CHRONIC INTERSTITIAL Apr-0 2 No Information Family History Family Member Type Diagnosis Age At Onset No Information Payers Payer name Insurance type Covered constitution party ID Authoriza tion(s) No Information Social History [...]
== END ==
LOC: HO.CARD 14:03
PROVIDERS: PCP Internal Medicine; Visit Provider Nurse Practitioner Family
DX: R00.0 Tachycardia, unspecified (principal); J44.9 Chronic obstructive pulmonary disease, unspecified; Q67.6 Pectus excavatum
CPT/HCPCS: 93005; 99212

== ENCOUNTER → 2024-06-08 15:21 | Outpatient (BNV) | payer OTHER, SELFPAY | PROVIDERS: PCP Internal Medicine; Visit Provider Internal Medicine Cardiovascular Disease | DX: R94.31 Abnormal electrocardiogram [ECG] [EKG] (principal) | CPT/HCPCS: 93010 ==

== ENCOUNTER 2024-07-07 16:10 | Outpatient (AMB) | payer OTHER, SELFPAY ==
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
--- OUTSIDE RECORDS SUMMARY | 2024-07-07 17:13 | XMS_ITS | Continuity of Care Document ---
Author Organization [facility] Address [address] [place] [address], [address] [place] [address]- Care Team Providers Care Hands And Dial Inspector Name Role Phone Rios Love MD, Zulma Lujan Primary Care Physician Encounter [facility] Date[facility]s): 05/24/24 - 06/23/24 [facility] [address] [place] [address] Drive [address] [place] [address]- Attending Physician: AdmPaulo de la o8 Admitting Physician: AdmtrAlexey Referring Physician: Admtr, Ar8 Encounter Type: Triage Allergies, Adverse Reactions, Alerts Substance Criticality Severity [...] 11:39:00 AM EST, Route to Pharmacy Electronically, [facility], Partial fill upon patient [...] 3:42:00 PM EST, Route to Pharmacy Electronically, [facility], Partial fill upon patient [...] 3:44:00 PM EST, Route to Pharmacy Electronically, [facility], Partial fill upon patient request if the prescription is for a schedule II opioid drug., 170, cm, 05/09/24 17:58:00 EST, Height, 55.7, kg, 05/09/24 17:58:00 EST, Dry Weight Start Date: 05/10/24 Stop Date: 05/17/24 Status: Ordered Quantity: 21.0 Unit: tablet Repeat number: 1 Problem List Condition Confirmation Course Effective Dates Status Health St atus Informant Pectus excavatum Confirmed Active Social History Social History Type Response Smoking Status Former smoker; Type: Cigarettes; Other: social smoker in her early 20s; entered on: 11/23/15 Sex Sex Representation Female (finding) Radiology * Event Display: CT Scan Chest, Non- BH Authored Date: [id number] Patient Care team information Care Team Personnel Name: Chely RN, Flora Position: [facility] RN Member Role: Primary Care Nurse Name: Chitra Roberts RN Position: [facility] RN Member Role: Primary Care Nurse Name: Ferdinand Berman RN Position: [facility] RN Member Role: Primary Care Nurse Name: Cecille Hays RN Position: [facility] RN Member Role: Primary Care Nurse Name: Rios Love MD , Zulma Lujan Position: Reference Physician Member Role: PCP Address: [address] [place], [place] [address] Telecom: Name: Addis Whalen NP Position: [facility] Outreach Member Role: Lifetime Consulting Physician Address: [address] [place] [address]- Telecom: Care Team Related Persons Name: MARY JO MASON Insurance Providers Guarantor name: MINNIE HANNAH Health Plan Information #: 1 Payer: [employer] Member Number: NA Policy Number: NA Group Number: NA
--- OUTSIDE RECORDS SUMMARY | 2024-07-07 17:13 | XMS_ITS | Continuity of Care Document ---
Author Organization [facility] vices Address [address] [place] [address] Phone Care Team Providers Care Tube Inspector Name Role Phone Unavailable Unavailable Unavailable Advance Directives Directive Yes / No Effective Date File Name No Information Encounters Encounter Description Practice Location Reason(s) For Visit Diagnoses Date Provider Providers Copied on Encounter [facility], [address] [place] [address], [facility], tel:[phone] Conversion No Information No Information [facility], [address] [place] [address], [facility], tel:[phone] Conversion IRRITABLE BOWEL SYNDROMECHRONIC MAJOR DEPRESSIONCYSTI TIS [...]
== END 2024-07-07 16:38 | disposition home or self-care (01) ==
PROVIDERS: PCP Internal Medicine; Visit Provider Nurse Practitioner Family
DX: N30.10 Interstitial cystitis (chronic) without hematuria (principal); R35.1 Nocturia; Z13.9 Encounter for screening, unspecified
CPT/HCPCS: 99213; G2211

== ENCOUNTER → 2024-07-07 16:10 | Outpatient (BNVA) | payer OTHER, SELFPAY | PROVIDERS: PCP Internal Medicine; Visit Provider Nurse Practitioner Family | DX: N30.10 Interstitial cystitis (chronic) without hematuria (principal); R35.1 Nocturia | CPT/HCPCS: 81003; 99212 ==

== ENCOUNTER 2024-09-09 15:55 | Outpatient (AMB) | payer OTHER, SELFPAY ==
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
[2024-09-09 16:05] VITALS: BP 108/60; PULSE 116; O2SAT 96; BMI 18.8
--- OUTSIDE RECORDS SUMMARY | 2024-09-09 16:46 | XMS_ITS | Continuity of Care Document ---
Author Organization [facility] vices Address [address] [place] [address] Phone Care Team Providers Care Tree Wrapper Name Role Phone Unavailable Unavailable Unavailable Advance Directives Directive Yes / No Effective Date File Name No Information Encounters Encounter Description Practice Location Reason(s) For Visit Diagnoses Date Provider Providers Copied on Encounter [facility], [address] [place] [address], [facility], tel:[phone] Conversion No Information [address] [facility], [address] [place] [address], [facility], tel:[phone] Conversion IRRITABLE BOWEL SYNDROMECHRONIC MAJOR DEPRESSIONCYSTI TIS CHRONIC INTERSTITIAL Apr-0 2 No Information Family History Family Member Type Diagnosis Age At Onset No Information Payers Payer name Insurance type Covered democrat ID Authoriza tion(s) No Information Social History [...]
== END 2024-09-09 16:19 | disposition home or self-care (01) ==
LOC: HO.HPSW 15:55
PROVIDERS: PCP Internal Medicine; Visit Provider Nurse Practitioner Family
DX: J44.9 Chronic obstructive pulmonary disease, unspecified (principal); Q67.6 Pectus excavatum; R00.0 Tachycardia, unspecified
CPT/HCPCS: 99213

== ENCOUNTER → 2024-09-09 15:55 | Outpatient (BNVA) | payer OTHER, SELFPAY | PROVIDERS: PCP Internal Medicine; Visit Provider Nurse Practitioner Family | DX: J44.9 Chronic obstructive pulmonary disease, unspecified (principal); R00.0 Tachycardia, unspecified; Q67.6 Pectus excavatum; Z87.891 Personal history of nicotine dependence | CPT/HCPCS: 99212 ==

== ENCOUNTER 2024-10-06 14:58 | Outpatient (AMB) | payer OTHER, SELFPAY ==
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
--- OUTSIDE RECORDS SUMMARY | 2024-10-06 17:32 | XMS_ITS | Continuity of Care Document ---
Author Organization [facility] vices Address [address] [place] [address] Phone Care Team Providers Care Senior Oracle Soa Developer Name Role Phone Unavailable Unavailable Unavailable Advance Directives Directive Yes / No Effective Date File Name No Information Encounters Encounter Description Practice Location Reason(s) For Visit Diagnoses Date Provider Providers Copied on Encounter [facility], [address] [place] [address], [facility], tel:[phone] Conversion No Information 2 No Information [facility], [address] [place] [address], [facility], tel:[phone] Conversion IRRITABLE BOWEL SYNDROMECHRONIC MAJOR DEPRESSIONCYSTI TIS CHRONIC INTERSTITIAL Apr-0 2 No Information Family History Family Member Type Diagnosis Age At Onset No Information Payers Payer name Insurance type Covered alliance party ID Authoriza tion(s) No Information Social [...]
== END 2024-10-06 15:32 | disposition home or self-care (01) ==
LOC: HO.HUSH 14:59
PROVIDERS: PCP Internal Medicine; Visit Provider Nurse Practitioner Family
DX: N30.10 Interstitial cystitis (chronic) without hematuria (principal); R39.9 Unspecified symptoms and signs involving the genitourinary system; Z13.9 Encounter for screening, unspecified
CPT/HCPCS: 99213

== ENCOUNTER → 2024-10-06 14:58 | Outpatient (BNVA) | payer OTHER, SELFPAY | PROVIDERS: PCP Internal Medicine; Visit Provider Nurse Practitioner Family | DX: N30.10 Interstitial cystitis (chronic) without hematuria (principal); R35.1 Nocturia | CPT/HCPCS: 51798; 81003; 99212 ==

== ENCOUNTER 2024-10-12 14:20 | Outpatient (RCR) | payer OTHER, SELFPAY ==
--- NOTE | 2024-08-30 16:23 | MHC.PT.EP ---
[facility] [place] Office [place] Office [employer] Office [address] Xiang Chaparro [address] [phone] F: [phone] F: [phone] F: [phone] F: [phone] Physical Therapy Plan of Care Date of Evaluation: 08/30/24 Date of Surgery: APR 2025 Diagnosis: LUMBAR PAIN Assessment: Pt IS 39 YO F REFERRED TO PT FROM DR ROCÍO IVERSON WITH BACK PAIN. Pt REPORTS HAVING PECTUS RECURVATUM SURGERY IN APR 2024. REPORTS PAIN AT BAR INSERTION SITES (AXILLARY AREAS). REPORTS FEELS LIKE POSTURE HAS CHANGED (WHICH IT HAS) AND WOULD LIKE TO LEARN MORE ABOUT HOW TO HAVE GOOD POSTURE. PRESENTS WITH INCREASED THORACIC KYPHOSIS, SOMEWHAT SWAYED BACK, DECREASED UPPER BODY AND CORE STRENGTH. Pt WITH PTSD (CAN BE UNCOMFORTABLE WITH MM PALPATION TO THORACIC PARASPINALS). IS ON DISABILITY. HAS HAD PT IN PAST FOR R SIDER ( RC TEAR ) AND BACK ISSUES. MAY BENEFIT FROM PT TO HELP ADDRESS ISSUES WITH STRENGTH AND FLEXIBILITY. OF NOTE, Pt SPEAKS ABOUT FURTHER DIAGNOSTIC TESTING TO HELP FIND OUT WHY SHE HAS PAIN. THIS MAY BE INHIBITIVE TO PROGRESS IN PT Frequency and Duration: The patient will be seen 1X/WK X 6 WKS (PER Pt CHOICE BETWEEN 1 OR 2 X PER WEEK) Short Term Goals: 1. INCREASED AWARENESS POSTURE AND BACK CARE 2. I HEP WITH DC EX PLAN Magnetic Healer Goals: 1. DECREASED UPPER BACK PAIN AT LEAST 50% WITH ADLS 2. IMPROVED MODIFIED OSWESTRY Treatment Plan: Modalities to reduce pain, spasms and effusion. Manual therapy to restore motion and function. Therapeutic exercise to improve strength and flexibility. Neuromuscular re-education for posture and balance. Therapeutic activities to return to functional activities of daily living. Electronically signed by: SUSAN JIMENEZ PT Please sign and return to therapist. Thank you for your referral.
--- NOTE | 2024-10-12 15:05 | MHC.PT.DC ---
[facility] [place] Office [place] Office [place] Office [address] Xiang Chaparro 140 [facility] [phone] F: [phone] F: [phone] F: [phone] F: [phone] Physical Therapy Discharge Report Diagnosis: LUMBAR PAIN Date of Surgery: APR 2025 Date of Evaluation: 08/30/24 Date of Discharge: 10/12/24 Treatments to Date: 6 Cancellations to Date: No Shows to Date: Discharge Status: Achieved Goals Improved Function Independent with HEP Patient Elected to Stop Recommend MD Follow-up Discharge Summary: HAS MET PT GOALS HAS HEP Electronically signed by: SUSAN JIMENEZ PT Please sign and return to therapist. Thank you for your referral.
== END 2024-10-12 15:06 | disposition home or self-care (01) ==
LOC: HO.PT 14:20
PROVIDERS: PCP Internal Medicine; Visit Provider Internal Medicine
DX: M54.50 Low back pain, unspecified (principal)
CPT/HCPCS: 97110; 97162; 97535

== ENCOUNTER 2024-10-28 13:26 | Outpatient (AMB) | payer OTHER, SELFPAY ==
--- OUTSIDE RECORDS SUMMARY | 2024-10-28 13:42 | XMS_ITS | Continuity of Care Document ---
Author Organization [facility] vices Address [address] [place] [address] Phone Care Team Providers Care Summer Clerk Name Role Phone Unavailable Unavailable Unavailable Advance Directives Directive Yes / No Effective Date File Name No Information Encounters Encounter Description Practice Location Reason(s) For Visit Diagnoses Date Provider Providers Copied on Encounter [facility], [address] [place] [address], [facility], tel:[phone] Conversion No Information No Information [facility], [address] [place] [address], [facility], tel:[phone] Conversion IRRITABLE BOWEL SYNDROMECHRONIC MAJOR DEPRESSIONCYSTI TIS CHRONIC INTERSTITIAL Apr-0 2 No Information Family History Family Member Type Diagnosis Age At Onset No Information Payers Payer name Insurance type Covered republican ID Authoriza tion(s) No Information Social History [...]
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
[2024-10-28 13:51] VITALS: BP 124/80; PULSE 124; TEMP 37.3; O2SAT 98; BMI 19.3
== END 2024-10-28 15:03 | disposition home or self-care (01) ==
PROVIDERS: PCP Internal Medicine; Visit Provider Physician Assistant
DX: J06.9 Acute upper respiratory infection, unspecified (principal)

== ENCOUNTER → 2024-10-28 13:26 | Outpatient (BNVA) | payer OTHER, SELFPAY | PROVIDERS: PCP Internal Medicine; Visit Provider Physician Assistant | DX: J06.9 Acute upper respiratory infection, unspecified (principal) | CPT/HCPCS: 99212 ==

== ENCOUNTER 2024-11-24 15:49 | Outpatient (AMB) | payer OTHER, SELFPAY ==
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
[2024-11-24 15:53] VITALS: BP 112/70; BMI 19.1
== END 2024-11-24 16:28 | disposition home or self-care (01) ==
LOC: HO.HMCH 15:49
PROVIDERS: PCP Internal Medicine; Visit Provider Internal Medicine
DX: Z00.00 Encounter for general adult medical examination without abnormal findings (principal); R00.0 Tachycardia, unspecified; J44.9 Chronic obstructive pulmonary disease, unspecified

== ENCOUNTER → 2024-11-24 15:49 | Outpatient (BNVA) | payer OTHER, SELFPAY | PROVIDERS: PCP Internal Medicine; Visit Provider Internal Medicine | DX: Z00.00 Encounter for general adult medical examination without abnormal findings (principal); J44.9 Chronic obstructive pulmonary disease, unspecified; R00.0 Tachycardia, unspecified | CPT/HCPCS: 96127; 99212; 99395 ==

== ENCOUNTER 2024-12-07 13:57 | Outpatient (AMB) | payer OTHER, SELFPAY ==
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
[2024-12-07 14:00] VITALS: BP 104/60; PULSE 121; O2SAT 96; BMI 19.2
--- OUTSIDE RECORDS SUMMARY | 2024-12-07 15:56 | XMS_ITS | Continuity of Care Document ---
Author Organization [facility] vices Address [address] [place] [address] Phone Care Team Providers Care Tick Inspector Name Role Phone Unavailable Unavailable Unavailable Advance Directives Directive Yes / No Effective Date File Name No Information Encounters Encounter Description Practice Location Reason(s) For Visit Diagnoses Date Provider Providers Copied on Encounter [facility], [address] [place] [address], [facility], tel:[phone] Conversion No Information 2 No Information [facility], [address] [place] [address], [facility], tel:[phone] Conversion IRRITABLE BOWEL SYNDROMECHRONIC MAJOR DEPRESSIONCYSTI TIS [...]
== END 2024-12-07 14:21 | disposition home or self-care (01) ==
LOC: HO.HPSW 13:58
PROVIDERS: PCP Internal Medicine; Visit Provider Nurse Practitioner Family
DX: J44.9 Chronic obstructive pulmonary disease, unspecified (principal); Q67.6 Pectus excavatum; R00.0 Tachycardia, unspecified
CPT/HCPCS: 99213

== ENCOUNTER → 2024-12-07 13:57 | Outpatient (BNVA) | payer OTHER, SELFPAY | PROVIDERS: PCP Internal Medicine; Visit Provider Nurse Practitioner Family | DX: R00.0 Tachycardia, unspecified (principal); J44.9 Chronic obstructive pulmonary disease, unspecified; Q67.6 Pectus excavatum | CPT/HCPCS: 99212 ==

== ENCOUNTER 2025-02-01 16:23 | Outpatient (AMB) | payer OTHER, SELFPAY ==
[2025-02-01 16:25] VITALS: BP 120/76; PULSE 120; O2SAT 97; BMI 19.3
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
--- OUTSIDE RECORDS SUMMARY | 2025-02-01 16:34 | XMS_ITS | Patient Health Record ---
Author Organization [facility] Address [address] [place] [address] Care Team Providers Care Plant Technician/Control Room Operator Name Role Phone Zulma Squires Primary Care Provider UnavailKenya Stevens Unavailable [phone] Allergies Allergen (clinical drug ingredient) Drug/Non Drug Allergy documented on EMR Reaction Allergy Type Onset Date Status Medical Adhesive Unknown Drug Allergy Active Wellbutrin Unknown Drug Allergy Active amoxicillin Amoxicillin Unknown Drug Allergy Act charli Reason For Referral No Information Medications Medication SIG (Take, Route, Frequency, Duration) Notes Start Date End Date Status Tums Active Omeprazole 20 MG 1 capsule Orally Onc e a day for 30 day(s) 06/11/2017 Active Cannabus Medical Marijuana CBD Active Zofran 4 MG 1 tablet Orally Q 8 hours prn nausea for 30 day(s) 06/11/2017 Active Social History Tobacco Use: Social History Observation Description Date Details (start date - stop date) Never Smoker NA - NA Tobacco Use/Smoking Question Answer Notes Patient is a nonsmoker Alcohol Screen Question Answer Notes Did you have a drink containing alcohol in the p ast year? No Points 0 Interpretation Negative Section Notes: Smokes marijuana TID for her GI symptoms; no cigarettes, no alcohol Problems Problem Type SNOMED Code ICD Code Onset Dates Problem Status W/U Status Risk Notes Problem 578982313 Nausea (R11.0) Active confirmed Problem 461121758 Gastroesophageal reflux disease, esophagitis presence not specified (K21.9) Active confirmed Problem 89079959 Constipation, unspecified constipation type (K59.00) Active confirmed Problem 810523601 Irregular bowel habits (R19.8) Active confirmed Plan Of Treatment Future Test Test Name Order Date UPPER GI ENDOSCOPY 06/11/2017 Insurance Providers Payer Name Payer Address Payer Phone Subscriber Number Group Number Insured Name Patient Relationship to Insured Coverage Start Date Coverage End Date [facility] [address] [facility] [place] [phone] [id number] MINNIE HANNAH Self - patient is the insured Medical (General) History Medical History History ICD Code Denies OR,DM,CVA,Lung disease,renal dise ase EGD and Colonoscopy in appro x [address] [place]--told of gastritis, esophagitis, hiatal hernia and a normal colonoscopy--? of gluten sensitivity--records are presently not available Dissociative identity syndrome--sees cruz p sychiatrist Surgical History Surgery Date(Month/Year) Tonsillectomy 1990 [place] teeth extraction 2002 2005,2010 Pectus excavatum 2005
== END 2025-02-01 16:48 | disposition home or self-care (01) ==
LOC: HO.HMCH 16:23
PROVIDERS: PCP Internal Medicine; Visit Provider Internal Medicine
DX: R00.0 Tachycardia, unspecified (principal); J44.9 Chronic obstructive pulmonary disease, unspecified

== ENCOUNTER 2025-02-01 16:23 | Outpatient (REF) | payer OTHER, SELFPAY ==
[2025-02-01 17:00] LABS: MANUAL DIFF FLAG NO
[2025-02-01 17:12] LABS: Hematocrit 40.6 % (37.0-47.0); Hemoglobin 13.6 g/dl (12.0-16.0); Imm Gran Abs Auto 0.01 X10*3/uL (0.00-0.03); Imm Gran Pct Auto 0.1 % (0.0-0.4); Lymphocytes Absolute Auto 3.0 X10*3/uL (1.2-4.9); Mean Corpuscular HGB Conc 33.5 g/dl (31.0-35.0); Mean Corpuscular Hemoglobin 30.1 pg (27.0-33.0); Mean Corpuscular Volume 89.8 fL (80.0-98.0); NRBC Abs Auto 0.000 X10*3/uL (0.0-0.012); NRBC Pct Auto 0.0 /100WBC (0.0-0.2); Platelet Count 338 X10*3/uL (160-400); Red Blood Count 4.52 X10*6/uL (4.20-5.50); White Blood Count 6.8 X10*3/uL (4.8-10.8)
[2025-02-01 18:02] LABS: Alanine Aminotransferase 17 U/L (0-31); Albumin Level 4.7 g/dL (3.5-5.0); Alkaline Phosphatase 66 U/L (39-117); Anion Gap 10 (12-20); Aspartate Amino Transferase 19 U/L (5-31); Blood Urea Nitrogen 11 mg/dL (9-16); Calcium 9.3 mg/dL (8.4-10.2); Carbon Dioxide 28 mmol/L (22-29); Chloride 108 mmol/L (96-108); Estimated Glomerular Filt Rate > 60; Potassium 4.5 mmol/L (3.3-5.1); Sodium 141 mmol/L (135-145); Total Protein 6.9 g/dL (6.5-8.0)
[2025-02-01 18:19] LABS: Thyroid Stimulating Hormone 0.56 uIU/mL (0.32-4.0)
== END 2025-02-01 16:24 | disposition home or self-care (01) ==
LOC: HO.LAB 16:23
PROVIDERS: PCP Internal Medicine; Visit Provider Internal Medicine
DX: R00.0 Tachycardia, unspecified (principal); J44.9 Chronic obstructive pulmonary disease, unspecified
CPT/HCPCS: 36415; 80053; 84443; 85025; 99212

== ENCOUNTER → 2025-02-14 15:55 | Outpatient (BNV) | payer OTHER, SELFPAY | PROVIDERS: PCP Internal Medicine; Visit Provider Internal Medicine | DX: R79.89 Other specified abnormal findings of blood chemistry (principal) | CPT/HCPCS: 99204 ==

== ENCOUNTER 2025-06-07 12:46 | Outpatient (AMB) | payer OTHER, SELFPAY ==
[2025-06-07 12:57] VITALS: BP 92/58; PULSE 117; O2SAT 96; BMI 19.3
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
--- OUTSIDE RECORDS SUMMARY | 2025-06-07 19:41 | XMS_ITS | Patient Health Record ---
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 Name Role Phone Zulma Squires Primary Care Provider UnavailKenya Stevens Unavailable [phone] Allergies Allergen (clinical drug ingredient) Drug/Non Drug Allergy documented on EMR Reaction Allergy Type Onset Date Status amoxicillin Amoxicillin Unknown Drug Allergy Act charli Wellbutrin Unknown Drug Allergy Active Medical Adhesive Unknown Drug Allergy Active Reason For Referral No Information Medications Medication SIG (Take, Route, Frequency, Duration) Notes Start Date End Date Status Tums Active Omeprazole 20 MG Capsule Delayed Release 1 capsule Orally Once a day; Duration: 30 day(s) 06/11/2017 Active Cannabus Medical Marijuana CBD Active Zofran 4 MG Tablet 1 tablet Orally Q 8 hours prn nausea; Duration: 30 day(s) 06/11/2017 Active Social History Tobacco Use: Social History Observation Description Date Details (start date - stop date) Never Smoker NA - NA Social History Drugs/Alcohol: Social Info Question Answer Notes Alcohol Screen Did you have a drink containing alcohol in the past year? No Points 0 Interpretation Negative Tobacco Use: Social Info Question Answer Notes Tobacco Use/Smoking Patient is a nonsmoker Additional Details Category Social Info Options Details Miscellaneous: Marital status: Occupation: Disabled from md ntal illness and GI symptoms Section Notes: Smokes marijuana TID for her GI symptoms; no cigarettes, no alcohol Problems Problem Type SNOMED Code ICD Code Onset Dates Problem Status W/U Status Risk Notes Problem Nausea (447023908) Nausea (R11.0) Active confir med Problem Gastroesophageal reflux disease (849571429) Gastroesophageal reflux disease, esophagitis presence not specified (K21.9) Active confirmed Problem Constipation (27837760) Constipation, unspecified constipation type (K59.00) Active confirmed Problem Irregular bowel habits (300615072) Irregular bowel habits (R19.8) Active confirmed Plan Of Treatment Future Test Test Name Order Date UPPER GI ENDOSCOPY 06/11/2017 Insurance Providers Payer Name Payer Address Payer Phone Subscriber Number Group Number Insured Name Patient Relationship to Insured Coverage Start Date Coverage End Date [facility] [address] [place] [phone] [id number] MINNIE HANNAH Self - patient is the insured Medical (General) History Medical History History ICD Code Denies [place],DM,CVA,Lung disease,renal dise ase EGD and Colonoscopy in appro [address] [place]--told of gastritis, esophagitis, hiatal hernia and a normal colonoscopy--? of gluten sensitivity--records are presently not available Dissociative identity syndrome--sees a p sychiatrist Surgical History Surgery Date(Month/Year) Tonsillectomy 1990 [place] teeth extraction 2002 2005,2010 Pectus excavatum 2005
== END 2025-06-07 13:19 | disposition home or self-care (01) ==
LOC: HO.HPSW 12:47
PROVIDERS: PCP Internal Medicine; Visit Provider Nurse Practitioner Family
DX: J44.9 Chronic obstructive pulmonary disease, unspecified (principal); Q67.6 Pectus excavatum; R00.0 Tachycardia, unspecified
CPT/HCPCS: 99214

== ENCOUNTER → 2025-06-07 12:46 | Outpatient (BNVA) | payer OTHER, SELFPAY | PROVIDERS: PCP Internal Medicine; Visit Provider Nurse Practitioner Family | DX: J44.9 Chronic obstructive pulmonary disease, unspecified (principal); Q67.6 Pectus excavatum; Z79.51 Long term (current) use of inhaled steroids; Z87.891 Personal history of nicotine dependence | CPT/HCPCS: 99212 ==

== ENCOUNTER 2025-06-08 12:59 | Outpatient (AMB) | payer OTHER, SELFPAY ==
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
== END 2025-06-08 13:23 | disposition home or self-care (01) ==
LOC: HO.HUSH 13:00
PROVIDERS: PCP Internal Medicine; Visit Provider Nurse Practitioner Family
DX: N30.10 Interstitial cystitis (chronic) without hematuria (principal); R39.9 Unspecified symptoms and signs involving the genitourinary system; Z13.9 Encounter for screening, unspecified
CPT/HCPCS: 99213

== ENCOUNTER → 2025-06-08 12:59 | Outpatient (BNVA) | payer OTHER, SELFPAY | PROVIDERS: PCP Internal Medicine; Visit Provider Nurse Practitioner Family | DX: N30.10 Interstitial cystitis (chronic) without hematuria (principal); R39.9 Unspecified symptoms and signs involving the genitourinary system; Z79.899 Other long term (current) drug therapy | CPT/HCPCS: 51798; 81003; 99212 ==

== ENCOUNTER 2025-06-20 02:11 | Emergency (ER) | payer OTHER, SELFPAY ==
--- NOTE | ~2025-06-20 | XR_ITS ---
CLINICAL HISTORY: cough 2 view chest x-ray Comparison: DX/SR - XR CHEST 2 VIEWS - 08/10/23 14:34 EST Findings: Hyperexpanded oligemic emphysematous lungs. Normal size heart. No acute fracture. IMPRESSION: 1. No acute findings. This document has been electronically signed by: Phoenix Conti MD, PHD on 06/20/2025 04:39:03
[2025-06-20 02:16] VITALS: BP 132/71; PULSE 106; O2SAT 96
[2025-06-20 02:17] VITALS: BP 110/58; PULSE 109; RESP 20; TEMP 36.8; O2SAT 94; BMI 18.8
[2025-06-20 03:03] LABS: Resp Syncy Virus RNA Qual PCR NEGATIVE (Negative); SARS COV2 PCR INHOUSE NEGATIVE (Negative)
--- OUTSIDE RECORDS SUMMARY | 2025-06-20 04:43 | XMS_ITS | Patient Health Record ---
Author Organization 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 Name Role Phone Zulma Squires Primary Care Provider UnavailKenya Stevens Unavailable [phone] Allergies Allergen (clinical drug ingredient) Drug/Non Drug [...] Details Miscellaneous: Marital status: Occupation: Disabled from sd ntal illness and GI symptoms Section Notes: Smokes marijuana TID for her GI symptoms; no cigarettes, no alcohol Problems Problem Type SNOMED Code ICD Code Onset Dates Problem Status W/U Status Risk Notes Problem Nausea (509896978) Nausea (R11.0) Active confir med Problem Gastroesophageal reflux disease (168036984) Gastroesophageal reflux disease, esophagitis presence not specified (K21.9) Active confirmed Problem Constipation (66578938) Constipation, unspecified constipation type (K59.00) Active confirmed Problem Irregular bowel habits (904643965) Irregular bowel habits (R19.8) Active confirmed Plan Of Treatment Future Test Test Name Order Date UPPER GI ENDOSCOPY 06/11/2017 Insurance Providers Payer Name Payer Address Payer Phone Subscriber Number Group Number Insured Name Patient Relationship to Insured Coverage Start Date Coverage End Date [facility] [address] [place] [phone] [id number] MINNIE HANNAH Self - patient is the insured Medical (General) History Medical History History ICD Code Denies [place],DM,CVA,Lung disease,renal dise ase EGD and Colonoscopy in appro [address] [place]--told of gastritis, esophagitis, hiatal hernia and a normal colonoscopy--? of gluten sensitivity--records are presently not available Dissociative identity syndrome--sees a p sychiatrist Surgical History Surgery Date(Month/Year) Tonsillectomy 1990 [place] teeth extraction 2002 2005,2010 Pectus excavatum 2005
[2025-06-20 05:40] VITALS: BP 124/75; PULSE 97; RESP 18; TEMP 36.7; O2SAT 95
--- NOTE | 2025-06-20 05:43 | PC.NURSE ---
MD to bedside for primary eval.
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
[2025-06-20] MEDS: Albuterol Sulfate 2.5 MG, Albuterol/Iprat 2.5/0.5MG 3 ML 3 ML INHALE (06:16)
[2025-06-20 06:18] VITALS: PULSE 108; RESP 18; O2SAT 94
--- NOTE | 2025-06-20 06:19 | PC.NURSE ---
Pt medicated per AUG, denies pain. Slight wheezing noted, hx of asthma. RT at bedside for hour long treatment, plan for dc afterwards.
[2025-06-20 07:13] VITALS: BP 118/75; PULSE 103; RESP 18; O2SAT 94
[2025-06-20 07:19] VITALS: BP 118/75; PULSE 103; RESP 18; TEMP 36.6; O2SAT 94
== END 2025-06-20 07:21 | disposition home or self-care (01) ==
PROVIDERS: Emergency Provider Emergency Medicine
DX: J10.1 Influenza due to other identified influenza virus with other respiratory manifestations (principal); J45.901 Unspecified asthma with (acute) exacerbation; R05.9 Cough, unspecified; M79.10 Myalgia, unspecified site; R50.9 Fever, unspecified; R06.02 Shortness of breath; Z87.891 Personal history of nicotine dependence
CPT/HCPCS: 71046; 87637; 94640; 99284; 99285

== ENCOUNTER → 2025-06-20 02:42 | Outpatient (BNV) | payer OTHER, SELFPAY | PROVIDERS: Visit Provider General Practice | DX: R05.9 Cough, unspecified (principal) | CPT/HCPCS: 71046 ==